=== PATIENT | male | born 1960 | race Caucasian/White ===

== ENCOUNTER 2019-08-01 12:16 | Inpatient (IN) | payer MEDICARE ==
--- NOTE | 2019-08-01 13:15 | ULT ---
EXAM: Right lower extremity venous Doppler US HISTORY: Right lower extremity edema and pain FINDINGS: Grayscale, color-flow, Doppler evaluation, spectral analysis of the right lower extremity venous stru ctures is performed with 2-D imaging. The right common femoral, superficial femoral, popliteal, posterior tibial, proximal greater saphenous and profunda femoral veins are imaged. There is normal luminal compressibility, flow, and augmentation the visualized deep venous structures of the right lower extremity. IMPRESSION: No evidence of a deep vein thrombosis in the right lower extremity.
[2019-08-01 14:05] LABS: #Eosinphils 0.1 thou/uL (0.0-0.7); #Lymphocytes 1.9 thou/uL (1.20-3.40); #Monocytes 0.7 thou/uL (0.11-0.59); #Neutrophils 7.6 thou/uL (1.40-6.50); %Basophils 0.3 % (0.0-1.0); %Eosinophils 1.1 % (0.0-10.0); %Lymphocytes 18.5 % (21.0-51.0); %Monocytes 6.6 % (0.0-10.0); %Neutrophils 73.6 % (42.0-75.0); Hemoglobin 15.6 g/dL (14.0-18.0); Mean Corpuscular HGB CONC 33.1 g/dL (32.0-36.0); Mean Corpuscular Hemoglobin 30.3 pg (27.0-31.0); Mean Corpuscular Volume 91.6 fL (78.0-98.0); Mean Platelet Volume 6.8 fL (7.4-10.4); Platelet Count 225 thou/uL (130-400); RBC Distribution Width 12.9 % (11.5-14.5); Red Blood Cell (RBC) Count 5.14 mill/uL (4.70-6.10); White Blood Cell (WBC) Count 10.3 thou/uL (4.8-10.8)
[2019-08-01 14:26] LABS: ALT (SGPT) 9 U/L (8-55); AST (SGOT) 9 U/L (5-34); Albumin 3.8 g/dL (3.4-4.8); Alkaline Phosphatase 117 U/L (40-110); Anion Gap 9 mmol/L (10-20); BUN (Urea Nitrogen) 13 mg/dL (8.4-25.7); Bilirubin, Total 0.5 mg/dL (0.2-1.2); Calc. Creatinine Clearance 0 mL/min (70-130); Calcium 8.9 mg/dL (7.8-10.44); Carbon Dioxide 31 mmol/L (23-31); Chloride 99 mmol/L (98-107); Estimated GFR-MDRD 86; Globulin 3.2 g/dL (2.4-3.5); Glucose 179 mg/dL (80-115); Potassium 4.3 mmol/L (3.5-5.1); Sodium 135 mmol/L (136-145)
--- NOTE | 2019-08-01 15:00 | RAD ---
XR Tib Fib Rt Leg 2 View History: Leg pain Comparison: Radiograph August 19, 2019 Findings: No acute fracture or malalignment. Mild circumferential soft tissue swelling. Moderate pret ibial edema has slightly improved. Impression: Slight interval improvement of pretibial soft tissue swelling.
[2019-08-01] MEDS ORDERED: Morphine 4 MG/ML VIAL ONE (15:52)
[2019-08-01] MEDS ORDERED: Dextrose 5% in Water 1,000 ML IV PRN (19:08)
[2019-08-01] MEDS ORDERED: Dextrose 50% Abboject 50 ML SYRINGE SLOW IVP PRN (19:08)
[2019-08-01] MEDS ORDERED: HumaLOG 300 UNITS/3 ML VIAL SC PRN ×2 (19:08)
[2019-08-01] MEDS ORDERED: Ondansetron PF 4 MG/2 ML Vial IVP PRN (19:45)
[2019-08-01 20:04] VITALS: BMI 47.9
--- NOTE | 2019-08-01 20:38 | RAD ---
CHEST TWO VIEW: 08/01/19 HISTORY: Syncope. COMPARISON: Radiograph 2014. FINDINGS: There is likely anterior herniation of fat and portions of the colon through the anterior diaphragm a s seen on the anterior and lateral radiographs. No confluent air space consolidation, pneumothorax or effusion. No acute osseous abnormality. IMPRESSION: Chronic findings. No acute intrathoracic abnormality. POS: HOME
[2019-08-01] MEDS ORDERED: Famotidine/PF 20 mg/2ml Vial SLOW IVP SCH (21:00)
[2019-08-01] MEDS ORDERED: hydrALAZINE 20 MG/ML VIAL SLOW IVP PRN (21:50)
[2019-08-01] MEDS: Sodium Chloride 0.9% 1,000 ML IV SCH (22:29)
[2019-08-02] MEDS: traMADol HCl 50 MG TAB PO PRN (05:28)
[2019-08-02 05:30] LABS: %Neutrophils 72.4 % (42.0-75.0); Hemoglobin 15.5 g/dL (14.0-18.0); Mean Corpuscular HGB CONC 33.1 g/dL (32.0-36.0); Mean Corpuscular Hemoglobin 30.3 pg (27.0-31.0); Mean Corpuscular Volume 91.6 fL (78.0-98.0); Mean Platelet Volume 6.9 fL (7.4-10.4); Platelet Count 209 thou/uL (130-400); RBC Distribution Width 12.8 % (11.5-14.5); Red Blood Cell (RBC) Count 5.13 mill/uL (4.70-6.10); White Blood Cell (WBC) Count 9.6 thou/uL (4.8-10.8)
[2019-08-02 05:31] LABS: #Eosinphils 0.2 thou/uL (0.0-0.7); #Lymphocytes 1.8 thou/uL (1.20-3.40); #Monocytes 0.7 thou/uL (0.11-0.59); #Neutrophils 6.9 thou/uL (1.40-6.50); %Basophils 0.2 % (0.0-1.0); %Eosinophils 1.9 % (0.0-10.0); %Lymphocytes 18.4 % (21.0-51.0); %Monocytes 7.1 % (0.0-10.0)
[2019-08-02 05:46] LABS: Anion Gap 11 mmol/L (10-20); BUN (Urea Nitrogen) 12 mg/dL (8.4-25.7); Calc. Creatinine Clearance 219 mL/min (70-130); Calcium 8.6 mg/dL (7.8-10.44); Carbon Dioxide 28 mmol/L (23-31); Chloride 100 mmol/L (98-107); Estimated GFR-MDRD Greater than 90; Glucose 158 mg/dL (80-115); Magnesium 1.9 mg/dL (1.6-2.6); Potassium 4.2 mmol/L (3.5-5.1); Sodium 135 mmol/L (136-145)
[2019-08-02 05:55] LABS: Bacteria/HPF None Seen HPF (None Seen); Bilirubin Negative (Negative); Blood, Urine Negative (Negative); Clarity Clear (Clear); Glucose, Urine (Dipstick) Greater than 1000 mg/dL (Negative); Leukocyte Negative Leu/uL (Negative); Nitrite Negative (Negative); Protein, Urine (Dipstick) Negative (Neg-Trace); RBC/HPF 0-3 HPF (0-3); Squamous Epithelial 0-3 HPF (0-3); WBC/HPF 0-3 HPF (0-3)
[2019-08-02 06:02] LABS: Urine Culture Reflex No No
--- NOTE | 2019-08-02 07:23 | HP ---
TIME OF ASSESSMENT: 1800 hours. CHIEF COMPLAINT: Right lower extremity swelling and pain. HISTORY OF PRESENT ILLNESS: Mr. Smith is a pleasant 59-year-old gentleman, who presents with increasing pain, swelling and erythema to the right lower extremity. He had been prescribed Bactrim by his primary care physician who he saw on Wednesday and has noted progressive worsening since then despite being on antibiotics. The patient states he injured his leg on . He states he was walking in his bedroom and the next thing he remembers is being on the floor and had apparently nicked the right anterior jasmine on the coffee table. The patient does not recall having any preceding symptoms prior to collapsing. Denies having any chest pain or palpitations. Denies having any lightheadedness. Since then, he has had no further syncopal episodes or unusual symptoms except for the increasing redness and swelling to the right lower extremity. He did seek medical attention at the [facility] on the day that he fell. He underwent imaging which showed no acute findings. The patient states that he had immediately developed a large area of swelling to the right anterior jasmine that was as big as his hand. Since then, that has progressively improved. However, as days progressed, he developed a linear area of erythema down his jasmine that has progressively worsened since. A repeat x-ray was done in the emergency department today, which showed slight interval improvement of the pretibial soft tissue swelling. There were no other abnormalities present. Of note, the patient did not undergo any CT imaging of the brain following his fall, and denies any headaches, vision changes or other concerning symptoms related to the fall since then. He also did not undergo any syncope workup. I do not see an EKG was done the day he fell or today. The patient has a known history of COPD and has been a heavy smoker and continues to smoke heavily. He uses O2 at home. Reports having a chronic cough, which has not been worse in recent days. Denies any hemoptysis. Again, denies any chest pain. No recent fevers or chills. No nausea or vomiting. No abdominal pain. Denies any lightheadedness. No dizziness. Denies any palpitations. All other review of systems are negative. In the emergency department, he has been started on IV antibiotics with vancomycin. PAST MEDICAL HISTORY: 1. Morbid obesity. 2. Diabetes mellitus. 3. COPD, on O2 at home. 4. History of CHF. 5. Cervical spine radiculopathy. 6. Peripheral neuropathy. PAST SURGICAL HISTORY: 1. Left lower leg surgery in the 1980s. 2. Fatty tumor removed from the right side of his chest. SOCIAL HISTORY: The patient reports smoking 2 packs per day and has been smoking for the last 30 years. He is a former alcoholic, but quit 2 years ago. Denies any illicit drug use. ALLERGIES: NO KNOWN DRUG ALLERGIES. CURRENT MEDICATIONS: 1. Farxiga. 2. Humulin. 3. Aspirin. 4. Gabapentin. 5. Lyrica. PHYSICAL EXAMINATION: GENERAL: The patient is morbidly obese, resting comfortably in bed, and in no acute distress. VITAL SIGNS: Temperature 97.7, pulse 72, respirations 20, O2 sat 95% on 3 L of oxygen by nasal cannula, and blood pressure 173/88. HEENT: Normocephalic and atraumatic. Pupils are equal, round, and reactive to light. Sclerae icterus. Oropharynx is clear. NECK: Supple. LUNGS: Notable for scattered occasional inspiratory and expiratory wheezing, mild. No crackles. CARDIAC: Regular rate and rhythm. ABDOMEN: Obese, soft, nontender, and nondistended. Normoactive bowel sounds present. No guarding or rigidity. No renal angle tenderness. EXTREMITIES: Right lower extremity swelling with erythema involving the entire right lower leg below the knee extending down to the right ankle. This area is warm with some bluish discoloration/ecchymosis. The patient has an area of swelling right below the right knee, which is not erythematous or warm, but is fluctuant, possibly hematoma, as it had developed immediately after the fall with notable improvement per imaging. NEUROLOGIC: Alert and oriented x3. No neuro deficits. No focal deficits. SKIN: Warm and dry. INVESTIGATIONS: Laboratory Data: White blood count 10.3, hemoglobin 15.6, hematocrit 47.1, platelets 225, and neutrophils 73.6%. ESR 13. Sodium 135, potassium 4.3, BUN 13, creatinine 0.90, GFR 86, glucose 179, and calcium 8.9. LFTs unremarkable. Alkaline phosphatase 117. CRP 1.83. Imaging Data: 1. As mentioned above in HPI, the patient had a tib-fib x-ray, that was unremarkable, showing improved soft tissue swelling when compared to x-ray done of the right tib-fib on July 12, 2019. 2. Venous Doppler to the right lower extremity showed no evidence of DVT. IMPRESSION AND PLAN: Mr. Smith is a very pleasant 59-year-old gentleman who is being admitted for management of the following. 1. Right lower extremity cellulitis. He has failed outpatient treatment with Bactrim. He has been started on IV antibiotics, which we will continue. Pharmacy to dose vancomycin. We will add lactic acid. 2. Syncope. The patient has not undergone workup for syncope, which is what caused his fall on the . No EKG has been done, therefore, we will obtain a baseline EKG. We will obtain orthostatic blood pressures. We will add magnesium and BNP. Echocardiogram requested as well. The patient will be moved to telemetry for continuous cardiac monitoring. He might benefit from a Holter monitor placement at discharge. This is to be determined by Day Team. 3. History of congestive heart failure. We will add BNP to his labs and we will keep him on gentle hydration. 4. Chronic obstructive pulmonary disease. The patient is on oxygen at home, which we will continue. Order placed for auto PAP as the patient states he uses BiPAP at night and does not know his settings. 5. Diabetes mellitus. Monitor blood glucose. Initiate insulin sliding scale. Resume home medications once verified. 6. Peripheral neuropathy. Resume home medications once verified. 7. Gastrointestinal prophylaxis. Famotidine 20 mg b.i.d. 8. Deep venous thrombosis prophylaxis. The patient is ambulatory. Walking program consulted. We will hold mechanical SCDs given the right lower extremity swelling and injury. 9. Code status full. His surrogate decision maker is his . The patient's case is discussed with Dr. Escobar, who agrees upon care as described above. Job ID: [id number]
[2019-08-02] MEDS ORDERED: HumuLIN 70/30 (300 UNITS/3 ML VIAL) SC SCH (07:30)
[2019-08-02] MEDS: Gabapentin 300 MG CAP PO SCH ×4 (07:50→21:15)
[2019-08-02] MEDS: Ondansetron ODT 4 MG TAB PO PRN ×2 (07:50→15:46)
[2019-08-02] MEDS: cefTRIAXone\\ROCEPHIN 2 GM in Sodium Chloride 0.9% 100 ML IVPB SCH (07:52)
[2019-08-02] MEDS: Aspirin Chewable 81 MG TAB PO SCH (08:42)
[2019-08-02] MEDS: Famotidine 20 MG TAB PO SCH ×2 (08:42→21:15)
[2019-08-02] MEDS: Pregabalin 25 MG CAP PO SCH (08:42)
[2019-08-02] MEDS: HumuLIN 70/30 (300 UNITS/3 ML VIAL) SC SCH (11:20)
--- NOTE | 2019-08-02 13:05 | PDOC.HOSPP ---
- Subjective Encounter Date: 08/02/19 Encounter Time: 10:15 Subjective: says fell on thanksgiving with twisting of right ankle and pain he has been walking on it now (had pain for 2 days initially) - Objective Vital Signs & Weight: Vital Signs (12 hours) Temp Pulse Pulse Pulse Resp BP BP 08/02/19 10:45 81 20 08/02/19 09:09 77 92 150/66 H 193/72 H 08/02/19 08:08 97.3 F L 68 18 08/02/19 03:00 97.1 F L 80 19 BP BP Pulse Ox Pulse Ox Pulse Ox 08/02/19 10:45 143/82 H 97 08/02/19 09:09 97 98 08/02/19 08:08 157/68 H 98 08/02/19 03:00 149/65 H 99 Weight Weight 325 lb I&O: 08/01/19 08/02/19 08/03/19 06:59 06:59 06:59 Intake Total 400 Output Total 350 Balance 50 Result Diagrams: 08/02/19 05:07 08/02/19 05:07 Additional Labs: Accuchecks 08/02/19 08/01/19 08/01/19 10:40 22:01 17:32 POC Glucose 152 H 166 H 145 H Hospitalist ROS - Medication Medications: Active Medications Generic Name Dose Route Start Last Admin Trade Name Freq PRN Reason Stop Dose Admin Albuterol/Ipratropium 3 ml 08/02/19 01:00 08/02/19 12:41 Duoneb NEB Not Given [id number] LIZBETH Aspirin 81 mg 08/02/19 09:00 08/02/19 08:42 Aspirin Chewable PO 81 mg DAILY LIZBETH Administration Famotidine 20 mg 08/02/19 09:00 08/02/19 08:42 Pepcid PO 20 mg Q12HR LIZBETH Administration Gabapentin 900 mg 08/02/19 09:00 08/02/19 07:50 Neurontin PO 900 mg QID LIZBETH Administration Sodium Chloride 1,000 mls @ 65 mls/hr 08/01/19 19:45 08/01/19 22:29 Normal Saline 0.9% IV 1,000 mls .[id number] LIZBETH Administration Vancomycin HCl 2 gm/ Sodium 500 mls @ 250 mls/hr 08/01/19 21:00 08/02/19 10: 20 Chloride IVPB 500 mls Q12HR LIZBETH Administration Ceftriaxone Sodium 2 gm/ 100 mls @ 200 mls/hr 08/02/19 08:00 08/02/19 07:52 Sodium Chloride IVPB 100 mls 0800 LIZBETH Administration Insulin Human Isoph/Insulin Regular 30 units 08/02/19 09:00 08/02/19 11:20 Humulin 70/30 SC 30 unit QAM LIZBETH Administration Ondansetron HCl 4 mg 08/01/19 19:45 08/02/19 07:50 Zofran Odt PO 4 mg Q6H PRN Administration Nausea/Vomiting Pregabalin 25 mg 08/02/19 09:00 08/02/19 08:42 Lyrica PO 25 mg QAM LIZBETH Administration Tramadol HCl 50 mg 08/02/19 05:14 08/02/19 05:28 Ultram PO 50 mg Q8H PRN Administration Pain - Exam General Appearance: awake alert Eye: PERRL, anicteric sclera ENT: no oropharyngeal lesions, moist mucosa Neck: supple, no JVD Heart: RRR, no murmur Respiratory: no wheezes, no rales, rhonchi Gastrointestinal: soft, non-tender, non-distended Extremities - other findings: right below knee laterally has swelling, ankle echymosis, leg erythema+ Neurological: cranial nerve grossly intact, no focal deficits Psychiatric: normal affect, A&O x 3 Hosp A/P (1) Cellulitis of right leg Code(s): L03.115 - CELLULITIS OF RIGHT LOWER LIMB Status: Acute (2) COPD (chronic obstructive pulmonary disease) Status: Chronic Qualifiers: COPD type: chronic bronchitis (3) Chronic respiratory failure Code(s): J96.10 - CHRONIC RESPIRATORY FAILURE, UNSP W HYPOXIA OR HYPERCAPNIA Status: Chronic Qualifiers: Respiratory failure complication: hypoxia and hypercapnia Qualified Code(s) : J96.11 - Chronic respiratory failure with hypoxia; J96.12 - Chronic respiratory failure with hypercapnia (4) DM type 2 (diabetes mellitus, type 2) Status: Chronic Qualifiers: Diabetes mellitus unix system administrator insulin use: with group home use (5) Tobacco abuse Code(s): Z72.0 - TOBACCO USE Status: Chronic (6) HTN (hypertension) Code(s): I10 - ESSENTIAL (PRIMARY) HYPERTENSION Status: Chronic Qualifiers: Hypertension type: essential hypertension Qualified Code(s): I10 - Essential (primary) hypertension - Plan d/w Teacle, will evaluate him and order further imaging as needed is on vanc and ceftriaxone (took bactrim for a week prior to coming) long h/o smoking, has come down to 2 packs/day now, sees as outpt continue 70/30 insulin, farxiga, neurontin and lyrica change status to inpatient, tx to med/medsurg floor
[2019-08-02] MEDS ORDERED: Methyl Salicylate/Menthol 85 GM TUBE TOP SCH (21:00)
[2019-08-02] MEDS: Sodium Chloride 0.9% 1,000 ML IV SCH (21:09)
--- NOTE | 2019-08-03 01:52 | CON ---
DATE OF CONSULTATION: 08/02/2019 REQUESTING PHYSICIAN: Manuel Schwab MD CONSULTING PHYSICIAN: Maverick Oh MD REASON FOR CONSULTATION: Subacute swelling, right leg. BRIEF CLINICAL HISTORY: Praneeth is a 59-year-old male who apparently fell a day or so after Thanksgiving, resulting in a hematoma on the right anterolateral leg. The patient reports swelling which has been coming on for the last week and a half. He has been able to stand and walk and get around and his is concerned with the persistence of the swelling and discomfort and prompted him to present to the emergency room where he was admitted by the Medicine Team for possible infection failing outpatient management with oral Bactrim, which was prescribed by his primary care provider due to the redness noted acutely after the swelling came on. The patient has a long complicated history of chronic COPD. He continues to smoke 3 packs a day and he also takes aspirin chronically. PAST MEDICAL HISTORY: Significant for insulin-requiring diabetes, peripheral neuropathy, history of chronic alcohol abuse, but he denies any illicit drug abuse. COPD and congestive heart failure. PAST SURGICAL HISTORY: Left leg surgery some time ago. Plain radiographs have been obtained of the leg and knee, which failed to demonstrate any acute issue and venous Doppler did not demonstrate evidence of DVT, but he was still admitted by the Medicine Team for cellulitis and our service was consulted for orthopedic evaluation of the large hematoma over the right anterolateral jasmine. PHYSICAL EXAMINATION: Visual spanning of the right lower extremity demonstrates the patient to have range of motion to be adequate and full at the knee. He is stable to varus and valgus stressing. Drawer is negative. There is no effusion over the knee. He does have a small abrasion on the anteromedial aspect of the infrapatellar region, but his patellar tendon appears to be intact. Quadriceps tendons are intact. There is no effusion over the knee. Essentially normal examination. Visual inspection of the leg; however, demonstrates a large anterolateral compressible hematoma which is about 7 x 7 cm and under the subcutaneous layer, it is fluctuant and not very tender. It is compressible and the skin appeared to be intact over the apex. There is no breakdown at this point. No severe ecchymosis or bruising. Most of the bruising run-down is seen inferior to the hematoma. It is nontender and he has some dimpling of the skin consistent with an orange peel appearance, but ecchymosis is noted diffusely and appears to be clearing at this point and does appear subacute in nature. Ankle examination is essentially normal and nontender. There is some trace to +1 edema circumferentially and chronic dermal stasis changes are appreciated with the patient's leg examination as well. He has good dorsiflexion, inversion, eversion, plantar flexion and full digital excursion is noted. Sensation is intact. IMAGING STUDIES: Two-view left leg failed to demonstrate any osseous abnormalities. No acute changes or fractures were identified at the site of the of the hematoma. IMPRESSION: Clinical examination and presentation are consistent with subacute presentation, right subcutaneous large hematoma. It appeared to be extra fascial in nature. PLAN: 1. At this point, conservative management highly recommended. There is no plans for incision, drainage, or aspiration. Skin changes are consistent with slow healing and resorption and resolution clinical course. 2. The patient may be weightbearing as tolerated. I do not think antibiotics treatment is warranted at this point. Continue to observe skin. He can follow up with his primary care provider, but we will offer him a clinic appointment in 1-2 weeks for clinical reexamination at our outpatient clinic. Job ID: [id number]
[2019-08-03] MEDS: traMADol HCl 50 MG TAB PO PRN (04:53)
[2019-08-03 08:15] VITALS: BP 131/57; TEMP 98
--- NOTE | 2019-08-03 09:25 | MRI ---
MRI OF THE RIGHT LEG WITH AND WITHOUT IV CONTRAST: INDICATION: Swelling status post fall with right leg cellulitis. TECHNIQUE: Multiple sequence MR images were obtained of the right foreleg with and without contrast utilizing 20 cc of MultiHance. No comparisons are available. Radiographic review of the right foreleg radiographs from 08/01/2019 were performed. FINDINGS: There is a predominantly T1 hyperintense, T2 hyperintense nonenhancing collection within the subcutan eous tissues overlying the proximal anterolateral right foreleg measuring 8.9 x 4.2 x 5.6 cm consistent with a large subcutaneous hematoma. There is enhancement of the subcutaneous tissues overl trip the anterior aspect of the proximal foreleg as well as the right knee suspicious for changes of a mild cellulitis. No abnormal enhancing mass is demonstrated. No marrow signal abnormality is paula ssly evident. There is mild osteoarthrosis involving the right knee. IMPRESSION: Large subcutaneous hematoma overlying the anterior compartment of the proximal right foreleg. Anterio r right knee and right foreleg cellulitis. Transcribed Date/Time: 08/03/2019 9:32 AM
[2019-08-03] MEDS: Aspirin Chewable 81 MG TAB PO SCH (09:35)
[2019-08-03] MEDS: Pregabalin 25 MG CAP PO SCH (09:36)
[2019-08-03] MEDS: Gabapentin 300 MG CAP PO SCH (09:36)
[2019-08-03] MEDS: HumuLIN 70/30 (300 UNITS/3 ML VIAL) SC SCH (09:37)
[2019-08-03] MEDS: Sodium Chloride 0.9% 1,000 ML IV SCH (09:38)
[2019-08-03] MEDS: Famotidine 20 MG TAB PO SCH (09:40)
[2019-08-03] MEDS: cefTRIAXone\\ROCEPHIN 2 GM in Sodium Chloride 0.9% 100 ML IVPB SCH (09:40)
--- NOTE | 2019-08-03 15:23 | DIS ---
DATE OF ADMISSION: 08/01/2019 DATE OF DISCHARGE: 08/03/2019 DISCHARGE DISPOSITION: Home. PRIMARY DISCHARGE DIAGNOSES: 1. Right leg cellulitis. 2. History of fall with hematoma. SECONDARY DISCHARGE DIAGNOSES: 1. Chronic obstructive pulmonary disease. 2. Chronic tobacco abuse. 3. Chronic respiratory failure on home oxygen. 4. Diabetes mellitus type 2. 5. Hypertension. PROCEDURES DONE DURING HOSPITALIZATION: The patient has had ultrasound venous Doppler done of right lower extremity, which showed no DVT. Tibia fibula x-ray two view done showed no acute fracture or malalignment. There is mild circumferential soft tissue swelling seen. MRI of right lower extremity done showed large subcutaneous hematoma measuring 8.9 x 4.2 x 5.6 cm cellulitis seen in the legs. Chest x-ray showed chronic findings with no acute abnormality. H and H 15 and 47, platelet count 209, white count of 9.6, MCV 91. Sedimentation rate 13. TSH 1.72, BUN 12, creatinine 0.7, CRP 1.83. DISCHARGE MEDICATIONS: 1. Aspirin 81 mg p.o. daily. 2. Farxiga 5 mg p.o. q.a.m. 3. Gabapentin 1600 mg p.o. 4 times daily. 4. NovoLog 70/30 30 units subcu q.a.m. 5. Lyrica p.o. q.a.m. 6. Keflex 500 mg p.o. three times daily for 10 days. ALLERGIES: NO KNOWN DRUG ALLERGIES. INPATIENT CONSULT: Dr. Hays/Adriano for Orthopedic Surgery. DISCHARGE PLAN: The patient to follow up with his primary care physician, Ms. Kathrin Soni, nurse practitioner in 1 week. BRIEF COURSE DURING HOSPITALIZATION: The patient initially was admitted on the for right lower extremity swelling and pain essentially cellulitis. He was also found to have had a large hematoma on the anterolateral aspect beneath the knee and ecchymosis seen on the medial aspect of the foot. In view of this, he has had orthopedic surgery consultation as the patient had a fall on . There were no fractures noted in his knee or ankle per orthopedics. He has had MRI done which confirms hematoma in his anterolateral aspect of the knee beneath the knee area on the right leg. He had also failed outpatient antibiotics after taking it for nearly 6 days (Bactrim). He was on IV antibiotics and has been transitioned to Keflex, which he needs to continue for 10 days. His area of erythema and edema is receding slowly. Please note, I have seen and examined the patient on the day of discharge. Job ID: [id number] MTDD
--- NOTE | 2019-08-05 05:16 | PQF ---
SAP Supervisor [employer]acing Crystal Reports Winform ViewerEMETERIO TIPTON JUVENTINO SOW MD [id number] [facility] [id number] CLINICAL DOCUMENTATION CLARIFICATION FORM: POST DISCHARGE Addendum to original discharge summary date: ____ Late entry note date: __ DATE: 08/05/2019 ATTN:JUVENTINO SOW MD Please exercise your independent, professional judgment in responding to the clarification form. Clinical indicators are provided on the bottom of this form for your review Please check appropriate box(s): [ ] RT Lower extremity cellulitis with Diabetes mellitus [ ] RT Lower extremity cellulitis without Diabetes mellitus [x ] Other diagnosis please see progress note/discharge summary, its not related to dm. Please provide your telephone # so we can contact you to discuss these issues. Thank You [ ] Unable to determine In addition, please specify: Present on Admission (POA): [ x] Yes [ ] No [ ] Unable to determine CLINICAL INDICATORS - SIGNS / SYMPTOMS / LABS RT lower extremity cellulitis - Documented in H&P on 08/01 by Muriel Yu he failed outpatient treatment with Bactrim - Documented in H&P on 08/01 by Muriel Yu Glucose Level 179 on 08/01 and 158 on 08/02 - Documented in Laboratory Hx of Diabetes Mellitus - Documented in H&P on 08/01 by Muriel Yu RISK FACTORS HTN COPD Chronic Respiratory failure - Documented in DS on 08/03 by JUVENTINO SOW MD TREATMENTS: He has been started on IV antibiotics which will continue - Documented in H&P on 08/01 by Muriel Yu Pharmacy to dose vancomycin - Documented in H&P on 08/01 by Muriel Yu Venous Doppler study Humulin 70/30 30units - Documented in Medication (This form is maintained as a part of the permanent medical record) 2014 [employer]. All Rights Reserved [email or web address] [not provided] MTDD
--- NOTE | 2019-08-10 04:23 | PQF ---
S[employer] Farm Manager Crystal Reports Winform ViewerEMETERIO TIPTON RUDYSherly JUVENTINO SOW MD [id number] [facility] [id number] CLINICAL DOCUMENTATION CLARIFICATION FORM: POST DISCHARGE Addendum to original discharge summary date: ____ Late entry note date: __ DATE:08/10/2019 ATTN: JUVENTINO SOW MD Please exercise your independent, professional judgment in responding to the clarification form. Clinical indicators are provided on the bottom of this form for your review Please check appropriate box(s): HEART FAILURE: A. TYPE: [ ] Systolic / HFrEF [ ] Diastolic / HFpEF [ ] Combined Systolic / Diastolic B. ACUITY [ ] Acute [ ] Acute on Chronic [ ] Chronic [ ] Other diagnosis [ x ] Unable to determine: He did not have current symptoms or signs of heart failure this admission, no prior echo to know if he had prior h/o chf. In addition, please specify: Present on Admission (POA): [ ] Yes [ ] No [ ] Unable to determine For continuity of documentation, please document condition throughout progress notes and discharge summary. Thank You. CLINICAL INDICATORS - SIGNS / SYMPTOMS / LABS RT lower extremity swelling - Documented in H&P on 08/01 by Aimee Mccullough Hx of CHF - Documented in H&P on 08/01 by Aimee Mccullough We will add BNP to his lab and we will keep him on gently hydration - Documented in H&P on 08/01 by Aimee Mccullough BNP level less than 10 on 08/01 - Documented in laboratory RISKS: HTN COPD Chronic Respiratory failure DM TREATMENTS: We will add magnesium and BNP and Echocardiogram requested as well - Documented in H&P on 08/01 by Aimee Mccullough Patient will be moved to telemetry for continuous cardiac monitoring - Documented in H&P on 08/01 by Aimee Mccullough [employer] Farm Manager Crystal Reports Winform Viewer (This form is maintained as a part of the permanent medical record) 2014 [employer]. All Rights Reserved [email or web address] [not provided] MTDD
--- NOTE | 2019-08-14 16:52 | EKG ---
Test Reason : ROUTINE Blood Pressure : / mmHG Vent. Rate : 079 BPM Atrial Rate : 079 BPM P-R Int : 172 ms QRS Dur : 084 ms QT Int : 380 ms P-R-T Axes : 065 065 053 degrees QTc Int : 435 ms Normal sinus rhythm Normal ECG When compared with ECG of 08-JAN-2014 13:29, No significant change was found Confirmed by MARKO UREÑA M.D. ([id number]) on 08/14/2019 4:51:46 PM Referred By: BRIAN LEE Confirmed By:MARKO UREÑA M.D.
== END 2019-08-03 11:32 | disposition home or self-care (01) | DRG 603 ==
LOC: ERS 12:16 → INTOOBSV 16:33 → T4-B 16:33 → OBSVTOIN 16:33 → 2SW 21:08
PROVIDERS: ADMIT Hospitalist; ATTEND Hospitalist
DX: L03.115 Cellulitis of right lower limb (principal); Z68.42 Body mass index [BMI] 45.0-49.9, adult; J96.11 Chronic respiratory failure with hypoxia; J96.12 Chronic respiratory failure with hypercapnia; J44.9 Chronic obstructive pulmonary disease, unspecified; E66.01 Morbid (severe) obesity due to excess calories; E11.9 Type 2 diabetes mellitus without complications; I11.0 Hypertensive heart disease with heart failure; I50.9 Heart failure, unspecified; Z98.890 Other specified postprocedural states; F17.210 Nicotine dependence, cigarettes, uncomplicated; Z79.82 Long term (current) use of aspirin
CPT/HCPCS: 36415; 36416; 71046; 80048; 80053; 81001; 83605; 83735; 83880; 84443; 85025; 85652; 86140; 93005; 93010; 94660; 96365; 96375; J0696; J1815; J2270; J3370; J3490; J7050; J7620; Q0162

== ENCOUNTER 2020-10-04 19:43 | Inpatient (IN) | payer MEDICARE ==
[2020-10-04] MEDS ORDERED: Morphine 4 MG/ML VIAL ONE (20:04)
[2020-10-04] MEDS ORDERED: Piperacillin/Tazobactam 3.375 GM VIAL ONE (20:04)
[2020-10-04] MEDS ORDERED: Ondansetron PF 4 MG/2 ML Vial ONE (20:09)
--- NOTE | 2020-10-04 20:19 | RAD ---
Exam: Chest one view HISTORY:Shortness of breath Comparison: 08/01/2019 FINDINGS: Cardiac silhouette:Stable cardiac silhouette. There appears to be pericardial fat which accentuates t he cardiac silhouette Aorta: Unremarkable Pulmonary vessels: Normal Costophrenic angles: Clear LUNGS: No masses or consolidation. Questionable nodule in the right lower lobe. Pneumothorax: None Osseous abnormalities: None IMPRESSION: 1. No acute cardiopulmonary process 2. Questionable right lower lobe nodule Code lung nodule
[2020-10-04 20:29] LABS: Glucose 155 mg/dL (80-115)
[2020-10-04] MEDS ORDERED: metroNIDAZOLE 500 MG/100 ML BAG ONE (21:14)
[2020-10-04] MEDS ORDERED: Ondansetron PF 4 MG/2 ML Vial IVP PRN ×2 (23:15→23:53)
[2020-10-04] MEDS ORDERED: Ondansetron ODT 4 MG TAB SL PRN (23:15)
[2020-10-04] MEDS ORDERED: Dextrose 5 %-0.45 % NaCl 1,000 ML IV SCH (23:15)
[2020-10-04 23:18] VITALS: BMI 47.1
[2020-10-04] MEDS ORDERED: Dextrose 50% Abboject 50 ML SYRINGE SLOW IVP PRN (23:20)
[2020-10-04] MEDS ORDERED: Dextrose 5% in Water 1,000 ML IV PRN (23:20)
[2020-10-04] MEDS ORDERED: Electrolyte Replacement Protocol 1 EACH FS SCH (23:45)
[2020-10-04] MEDS ORDERED: Promethazine HCl 12.5 MG in Sodium Chloride 0.9% 50 ML IVPB PRN (23:53)
[2020-10-04] MEDS ORDERED: Acetaminophen 325 MG TAB PO PRN (23:53)
[2020-10-04] MEDS ORDERED: Guaifenesin DM 100-10/5 ML UDCUP PO PRN (23:53)
[2020-10-04] MEDS ORDERED: hydrALAZINE 20 MG/ML VIAL SLOW IVP PRN (23:53)
[2020-10-04] MEDS ORDERED: Labetalol HCl 100 MG/20 ML VIAL SLOW IVP PRN (23:53)
[2020-10-04] MEDS ORDERED: Morphine 2 MG/ML VIAL SLOW IVP PRN (23:53)
[2020-10-04] MEDS ORDERED: Piperacillin/Tazobactam 3.375 GM in Sodium Chloride 0.9% 100 ML IVPB SCH (23:59)
--- NOTE | 2020-10-05 | PDOC.HHP ---
Hospitalist HPI Abdominal pain History of Present Illness: Patient is a 60 year old male with PMH DM, CHF, COPD, chronic respiratory f ailure on 3.5L O2 chronically who presents as transfer from [place] for abdominal pain. Pain is in RLQ and began yesterday. +nausea. ate chili last night, felt worse since with gas and belching. WBC 14.5, CT abdomen revealed appendicitis without perforation. recieved zosyn. on chronic 3.5L NC and no change in breathing, denies wheezing. Dr West consulted. Patient admitted for further workup and care. Allergies/Adverse Reactions: Allergy/AdvReac Type Severity Reaction Status Date / Time No Known Allergies Allergy Verified 08/01/19 22:15 Home Medications: Medication Instructions Recorded Confirmed Type Aspirin 81 mg PO DAILY 08/01/19 10/04/20 History Dapagliflozin Propanediol [Farxiga] 5 mg PO QAM 08/01/19 10/04/20 History Gabapentin 1,600 mg PO QID 08/01/19 10/04/20 History Insulin NPH Hum/Reg Insulin HM 50 unit SC QAM 08/01/19 10/04/20 History [Novolin 70/30] Pregabalin [Lyrica] 300 mg PO QAM 08/01/19 10/04/20 History Past History: PMHx: Flu vaccine not up to date, Tetanus immunization up to date, Pneumococcal vaccine not up to date, Past medical history includes cardiac history, congestive heart failure, Past medical history includes history of diabetes, Type II, Past medical history includes musculoskeletal disorder, pinched nerve in neck, Past medical history includes pulmonary disease, chronic obstructive pulmonary disease, O2 3.5 L NC/cpap at night at home, Notes: TUMOR TO L chest. PSHx: Surgical history of orthopedic surgery, Notes: L leg, Surgical history of orthopedic surgery, LEFT LOWER LEG, Date of surgery , Notes: PINS, SCREWS, FATTY TUMOR REMOVALFROM L CHEST. FHx: reviewed, no relevant family history Social: Patient denies alcohol use, Lives at home, with family, , Patient denies drug use, Patient currently uses tobacco, smokes cigarettes, daily, Patient has smoked for 30 years, Patient smokes 3 packs per day, Lives at home, with family. Hospitalist EDITH ROS Constitutional: reports: weakness, malaise Eyes: denies: pain, vision change, conjunctivae inflammation, eyelid inflammation, redness, other ENT: denies: ear pain, ear discharge, nose pain, nose discharge, nose congestion, mouth pain, mouth swelling, throat pain, throat swelling, other Respiratory: denies: cough, dry, shortness of breath, hemoptysis, SOB with excertion, pleuritic pain, sputum, wheezing, other Cardiovascular: denies: chest pain, palpitations, orthopnea, paroxysmal noc. dyspnea, edema, light headedness, other Gastrointestinal: reports: nausea, vomiting, abdominal pain. denies: diarrhea, constipation, melena, hematochezia, other Genitourinary: denies: dysuria, frequency, incontinence, hematuria, retention, other Musculoskeletal: denies: neck pain, shoulder pain, arm pain, back pain, hand pain, leg pain, foot pain, other Skin: denies: rash, lesions, delia, bruising, other Neurological: denies: weakness, numbness, incoordination, change in speech, confusion, seizures, other All other systems reviewed; all pertinent +/- noted in HPI/Subj Hospitalist Exam Vitals: Vital Signs (12 hours) Temp Pulse Resp BP Pulse Ox 10/04/20 23:46 97.6 F 94 18 116/75 99 10/04/20 23:04 98.1 F 98 20 152/87 H 100 Weight Weight 319 lb 4.8 oz General Appearance: NAD, awake alert Eye: PERRL, anicteric sclera ENT: normocephalic atraumatic, no oropharyngeal lesions, moist mucosa Neck: supple, symmetric, no JVD, no thyromegaly, no lymphadenopathy, no carotid bruit Heart: RRR, no murmur, no gallops, no rubs, normal peripheral pulses Respiratory: CTAB, no wheezes, no rales, no ronchi, normal chest expansion, no tachypnea, normal percussion Gastrointestinal: soft, non-distended, normal bowel sounds, no palpable masses, no hepatomegaly, no splenomegaly, no bruit Gastrointestinal - other findings: TTP RLQ Extremities: no cyanosis, no clubbing, no edema Skin: normal turgor, no lesions, no rashes Neurological: cranial nerve grossly intact, normal sensation to touch, no weakness, no focal deficits, no new deficit Musculoskeletal: normal tone, normal strength, no muscle wasting Psychiatric: normal affect, normal behavior, A&O x 3 Hospitalist Results Result Diagrams: 10/04/20 20:11 Lab results: Laboratory Last Values Glucose 155 mg/dL (80-115) H 10/04/20 20:11 Lactic Acid 1.5 mmol/L (0.5-2.2) 10/04/20 20:38 Troponin I 0.022 ng/mL (< 0.028) 10/04/20 20:10 B-Natriuretic Peptide 65.1 pg/mL (0-100) 10/04/20 20:11 Additional comment: labs, imaging reports, ED documents reviewed EKG NSR [address] changes Hospitalist H&P A/P Plan: Patient is a 60 year old male with PMH DM, CHF, COPD, chronic respiratory failure on 3.5L O2 chronically who presents as transfer from [place] for abdominal pain. # acute appendicitis # leukocytosis RLQ pain x 1 day, +nausea, WBC 14.5, CT abdomen revealed appendicitis without perforation w/ reactive lymphadenopathy. recieved zosyn. on chronic 3.5L NC and no change in breathing, denies wheezing. Dr West consulted. Patient admitted for further workup and care. - admit to floor - echo - appreciate surgery assistance - Zosyn - IVF x 1 bag, monitor volume status - NPO # T2DM - continue home 70/30 at half dose, SSI # COPD - not clinically in exacerbation, no wheezing, continue medications # CHF - echo, clinically at baseline, follow up echo # chronic hypoxic respiratory failure - continue on home rate 3.5 LPM DVT/GI ppx
[2020-10-05] MEDS ORDERED: Pregabalin 75 MG CAP PO SCH (00:30)
[2020-10-05] MEDS ORDERED: metroNIDAZOLE 500 MG in Premix Bag 1 BAG IVPB SCH ×2 (01:00→05:00)
[2020-10-05] MEDS: HYDROcodone/Acetaminophen 5/325 mg Tablet PO PRN ×2 (01:12→06:14)
[2020-10-05] MEDS: Sodium Chloride 0.9% 1,000 ML IV SCH ×3 (01:12→22:25)
[2020-10-05] MEDS: Piperacillin/Tazobactam 3.375 GM in Sodium Chloride 0.9% 100 ML IVPB SCH ×4 (01:13→19:56)
[2020-10-05] MEDS ORDERED: Piperacillin/Tazobactam 3.375 GM in Sodium Chloride 0.9% 100 ML IVPB SCH (02:00)
[2020-10-05 05:07] LABS: #Basophils 0.1 thou/uL (0.0-0.2); #Lymphocytes 1.8 thou/uL (1.20-3.40); #Monocytes 1.1 thou/uL (0.11-0.59); #Neutrophils 8.7 thou/uL (1.40-6.50); %Basophils 0.5 % (0.0-1.0); %Eosinophils 0.3 % (0.0-10.0); %Lymphocytes 15.4 % (21.0-51.0); %Monocytes 9.4 % (0.0-10.0); %Neutrophils 74.5 % (42.0-75.0); Hemoglobin 14.7 g/dL (14.0-18.0); Mean Corpuscular HGB CONC 32.9 g/dL (32.0-36.0); Mean Corpuscular Volume 91.2 fL (78.0-98.0); Mean Platelet Volume 7.2 fL (7.4-10.4); Platelet Count 158 thou/uL (130-400); RBC Distribution Width 13.2 % (11.5-14.5); Red Blood Cell (RBC) Count 4.89 mill/uL (4.70-6.10); White Blood Cell (WBC) Count 11.6 thou/uL (4.8-10.8)
[2020-10-05 05:26] LABS: Anion Gap 10 mmol/L (10-20); BUN (Urea Nitrogen) 14 mg/dL (8.4-25.7); Calc. Creatinine Clearance 191 mL/min (70-130); Calcium 7.9 mg/dL (7.8-10.44); Carbon Dioxide 23 mmol/L (23-31); Chloride 103 mmol/L (98-107); Glucose 122 mg/dL (80-115); Magnesium 1.6 mg/dL (1.6-2.6); Potassium 3.9 mmol/L (3.5-5.1); Sodium 132 mmol/L (136-145)
[2020-10-05 05:50] LABS: SARS-CoV-2 PCR by NAA Not Detected (NotDetected)
[2020-10-05] MEDS ORDERED: Magnesium 2 GM/50 ML 2 GM in Premix Bag 1 BAG IVPB SCH (06:30)
[2020-10-05] MEDS: Aspirin Chewable 81 MG TAB PO SCH (07:58)
[2020-10-05] MEDS: Polyethylene Glycol 3350 17 GM Packet PO SCH (08:05)
[2020-10-05] MEDS ORDERED: HumuLIN 70/30 (300 UNITS/3 ML VIAL) SC SCH ×2 (09:00)
[2020-10-05] MEDS ORDERED: Famotidine 20 MG TAB PO SCH (09:00)
[2020-10-05] MEDS ORDERED: DAPAGLIFLOZIN PROPANEDIOL 5 MG PO SCH (09:00)
[2020-10-05] MEDS ORDERED: Gabapentin 400 MG CAP PO SCH ×2 (09:00→21:30)
[2020-10-05] MEDS ORDERED: methylPREDNISolone Sod Succ/PF 125 MG/2 ML VIAL IVP SCH (10:30)
[2020-10-05] MEDS ORDERED: Budesonide 0.5 MG/2 ML NEB NEB SCH (10:30)
--- NOTE | 2020-10-05 11:03 | CON ---
DATE OF CONSULTATION: CHIEF COMPLAINT: Right lateral abdominal pain. HISTORY OF PRESENT ILLNESS: The patient is a 60-year-old male who was admitted with a 2-day history of right-sided abdominal pain associated with nausea, no vomiting. CT scan shows a retrocecal appendicitis. PAST MEDICAL HISTORY: Significant for severe COPD on home oxygen at 3.5 L, morbid obesity, diabetes mellitus, and congestive heart failure. PAST SURGICAL HISTORY: He has had left leg surgery and benign lipoma removed from his chest. ALLERGIES: NO KNOWN DRUG ALLERGIES. MEDICATIONS: 1. Aspirin. 2. Lyrica. 3. Insulin. 4. Farxiga. 5. Gabapentin. SOCIAL HISTORY: He does not drink alcohol, but is still smoking. FAMILY HISTORY: Noncontributory. PHYSICAL EXAMINATION: VITAL SIGNS: Temperature 97.9, pulse 87, blood pressure 112/61. GENERAL: Morbidly obese male on oxygen. HEENT: Otherwise unremarkable. LUNGS: Clear. HEART: Regular rate and rhythm. ABDOMEN: Morbidly obese and distended. He is tender along the right lateral abdomen with a positive Rovsing sign. EXTREMITIES: Unremarkable. LABORATORY DATA: His white count is 11.6, hemoglobin and hematocrit 14 and 44, platelet count of 158. His glucose is 122, creatinine 0.8. IMAGING DATA: He has an echocardiogram pending. ASSESSMENT: Acute appendicitis, retrocecal and a very high risk patient. PLAN: Consult Pulmonary Medicine. They feel he is way too high risk to go to surgery. We will treat medically and percutaneous drain what if there is a perforation, however, if at all possible, would recommend surgery. It is likely would require an open procedure due to his abdominal distention and retrocecal nature of the appendix. Job ID: [id number]
--- NOTE | 2020-10-05 12:19 | PDOC.PULCN ---
Pulmonology Consult: HPI - Date of Consult Date: 10/05/20 Time: 10:00 - Consult Details Reason for Consult: preop pulm Comments: Brett - History of Present Illness HPI: EMETERIO TIPTON is a 60 year-old M This 60 year old male is followed as oupt by Dr Abraham for COPD, JIGAR, Obesity and continues to smoke 2 PPD, lacks exercise capacity, and continues to gain weight. He has a daily cough productive of white to yellow sputum, orthopnea, and is on home oxygen 3.5 liters and also via home cpap. He ate chili on 10/03 and developed reflux, followed by pain in RLQ, one liquid BM (his usual) and increasing pain. He presented by EMS to ED and has been diagnosed by CT with acute appendicitis. I am asked to render an opinion re: his surgical risks from a pulmonary perspective. Pulmonology Consult: ROS - Review of Systems Constitutional: other (lightheaded with pain and elevation in glucose which has occurred over past 48 hours) Cardiovascular: light headedness. negative: chest pain, palpitations, orthopnea, paroxysmal nocturnal dyspnea, edema, other Respiratory: cough (rhinitis after meals), exercise intolerance (severe, he is sedentary), productive cough, short of breath. negative: no reported symptoms, bloody sputum, congestion, chest soreness, chest tightness, pain on deep breathing, non-productive cough, orthopnea, other, blodd streaked sputum, stridor, tachypnea, wheezing Pulmonology Consult: PMH Past Medical History: diabetes, JIGAR, COPD, oxygen dependent remote surgeries of extremities: lipoma - Family History Family history: reviewed and not pertinent - Social History Smoking Status: Current every day smoker (2 ppd) Alcohol Use: none, other (last drink in ) Pulmonology Consult: Meds - Medications Medications: Current Medications Acetaminophen (Acetaminophen 325 Mg Tab) 650 mg PO Q4H PRN PRN Reason: Headache/Fever/Mild Pain (1-3) Hydrocodone Bitart/Acetaminophen (Hydrocodone/Acetaminophen 5/325 Mg Tablet) 1 tab PO Q4H PRN PRN Reason: Moderate Pain (4-6) Last Admin: 10/05/20 06:14 Dose: 1 tab Documented by: Albuterol/Ipratropium (Ipratropium/Albuterol Sulfate 3 Ml Neb) 3 ml NEB [id number] PRN PRN Reason: SOB &/or Wheezing Albuterol/Ipratropium (Ipratropium/Albuterol Sulfate 3 Ml Neb) 3 ml NEB NOW [facility] Stop: 10/05/20 12:00 Last Admin: 10/05/20 10:34 Dose: 3 ml Documented by: Albuterol/Ipratropium (Ipratropium/Albuterol Sulfate 3 Ml Neb) 3 ml NEB [id number] [facility] Last Admin: 10/05/20 10:42 Dose: Not Given Documented by: Aspirin (Aspirin Chewable 81 Mg Tab) 81 mg PO DAILY [facility] Last Admin: 10/05/20 07:58 Dose: 81 mg Documented by: Budesonide (Budesonide 0.5 Mg/2 Ml Neb) 0.5 mg NEB NOW [facility] Stop: 10/05/20 14:00 Last Admin: 10/05/20 10:35 Dose: 0.5 mg Documented by: Budesonide (Budesonide 0.5 Mg/2 Ml Neb) 0.5 mg NEB BID-RT [facility] Clonidine (Clonidine 0.1 Mg Tab) 0.1 mg PO BIDPRN PRN PRN Reason: SBP > 160, use second Dextrose/Water (Dextrose 50% Abboject 50 Ml Syringe) 25 gm SLOW IVP PRN PRN PRN Reason: Hypoglycemia Famotidine (Famotidine 20 Mg Tab) 20 mg PO BID [facility] Last Admin: 10/05/20 07:58 Dose: 20 mg Documented by: Gabapentin (Gabapentin 400 Mg Cap) 1,200 mg PO 0900 [facility] Stop: 10/05/20 12:00 Last Admin: 10/05/20 07:58 Dose: 1,200 mg Documented by: Glucagon (Glucagon 1 Mg/Ml Vial) 1 mg IM PRN PRN PRN Reason: Hypoglycemia Guaifenesin/Dextromethorphan (Guaifenesin Dm 100-10/5 Ml Udcup) 15 ml PO Q4H PRN PRN Reason: Cough Hydralazine HCl (Hydralazine 20 Mg/Ml Vial) 10 mg SLOW IVP Q6H PRN PRN Reason: SBP GREATER THAN 160 Dextrose/Water (D5w) 1,000 mls @ 0 mls/hr IV .Q0M PRN PRN Reason: Hypoglycemia Sodium Chloride (Normal Saline 0.9%) 1,000 mls @ 100 mls/hr IV .Q10H [facility] Last Admin: 10/05/20 01:12 Dose: 1,000 mls Documented by: Piperacillin Sod/Tazobactam (Sod 3.375 gm/ Sodium Chloride) 100 mls @ 200 mls/hr IVPB 0200,0800,1400,2000 [facility] Last Admin: 10/05/20 07:59 Dose: 100 mls Documented by: Promethazine HCl 12.5 mg/ (Sodium Chloride) 50.5 mls @ 202 mls/hr IVPB Q6H PRN PRN Reason: Nausea/vomiting, use second Insulin Human Lispro (Humalog 300 Units/3 Ml Vial) 0 units SC .MODERATE SLIDING SC PRN PRN Reason: Moderate Correctional Scale Insulin Human Lispro (Humalog 300 Units/3 Ml Vial) 0 units SC .BEDTIME SLIDING SC PRN PRN Reason: Bedtime Correctional Scale Labetalol HCl (Labetalol Hcl 100 Mg/20 Ml Vial) 20 mg SLOW IVP Q4H PRN PRN Reason: SBP > 160, use first Methylprednisolone Sodium Succinate (Methylprednisolone Sod Succ/Pf 125 Mg/2 Ml Vial) 80 mg IVP NOW [facility] Stop: 10/05/20 14:00 Miscellaneous Medication (Electrolyte Replacement Protocol 1 Each) 1 each FS ASDIR [facility] Morphine Sulfate (Morphine 2 Mg/Ml Vial) 2 mg SLOW IVP Q4H PRN PRN Reason: Moderate to Severe Pain (4-10) Non-Formulary Medication (Gabapentin [Gabapentin]) 1,600 mg PO QID [facility] Ondansetron HCl (Ondansetron Pf 4 Mg/2 Ml Vial) 4 mg IVP Q6H PRN PRN Reason: Nausea/Vomiting Stop: 10/05/20 11:00 Ondansetron HCl (Ondansetron Odt 4 Mg Tab) 4 mg SL Q6H PRN PRN Reason: Nausea/Vomiting Stop: 10/05/20 11:00 Ondansetron HCl (Ondansetron Pf 4 Mg/2 Ml Vial) 4 mg IVP Q6H PRN PRN Reason: Nausea/Vomiting, use 1st Polyethylene Glycol (Polyethylene Glycol 3350 17 Gm Packet) 17 gm PO DAILY [facility] Last Admin: 10/05/20 08:05 Dose: Not Given Documented by: Pregabalin (Pregabalin 75 Mg Cap) 300 mg PO HS [facility] Saccharomyces Boulardii (Saccharomyces Boulardii 250 Mg Cap) 250 mg PO DAILY [facility] Sodium Chloride (Flush - Normal Saline 10 Ml Syringe) 10 ml IVF PRN PRN PRN Reason: Saline Flush - Allergies Allergies/Adverse Reactions: Allergies Allergy/AdvReac Type Severity Reaction Status Date / Time No Known Allergies Allergy Verified 08/01/19 22:15 Pulmonology Consult: PE - Physical Exam HEENT: PERRLA, 2+ tonsils (Mallampati 4, submental distance 2 FB, enlarged tongue) Neck: no nodes (excessive fat of the neck) Cardiovascular: RRR (distant) Respiratory: decreased breath sounds (upper lobes), rales, rhonchi, wheezes (left lower on pulse ox when nc partiall in nares, sats remained 95% and greater when [address]) Focused Respiratory Location: decreased breath sounds: Upper, rhonchi: Right, Left, Lower, wheezes: Right, Lower Gastrointestinal: soft (tender right lower quadrant with guarding, obese, very large fat pad and hanging abdomen, quiet no bowel sounds) Musculoskeletal: no edema, pulses present Neurological: non-focal, moves all 4 limbs Psychiatric: normal affect (discussed likelihood of post op vent dependence, awakening with ETT in place, he accepts risks of prolonged mechanical tip tilation and discussed this with spouse in my presence) Skin: cap refill <2 seconds Deviation from normal: dry skin, erythema dorsum hands Pulmonology Consult: Results - Labs Result Diagrams: 10/05/20 04:49 10/05/20 04:49 - Radiology Interpretation Chest x-ray Status: image reviewed by me (bilateral fat pads, possible nodule or nipple shadow right lower, no acute infiltrates) Pulmonology Consult: A/P - Problem (1) JIGAR and COPD overlap syndrome Current Visit: Yes Code(s): G47.33 - OBSTRUCTIVE SLEEP APNEA (ADULT) ( PEDIATRIC); J44.9 - CHRONIC OBSTRUCTIVE PULMONARY DISEASE, UNSPECIFIED Status: Chronic (2) Hyponatremia Current Visit: Yes Code(s): E87.1 - HYPO-OSMOLALITY AND HYPONATREMIA Status: Acute - Time Time: 50% of the time was spent in coordination of care (as documented) at patient's floor/unit and/or counseling patient. Time with Patient: greater than 50 minutes (spent at bedside, discussion with patient and Dr West, available for OR and discuss with anesthesia,) - Plan Plan: Assess Complication risk for lower abd surgery is intermediate by ARISCAT score 34 = 13% risk fo in hospital post op pulmonary complicaitons incluing but not limited to prolonged respiratory failure, infections, effusions, atelectasis, pneumothorax, bronchospasm, aspiration Mallampati 4, difficult airway anticipated Morbid obesity Chronic bronchitis Suspect obesity hypoventilation syndrome JIGAR Oxygen dependent COPD Exercise intolerance Chronic tobacco dependence Hyponatremia Sepsis due to acute appendicitis: patient stated that he accepts risks of prolonged mechanical ventilation to reduce pain, explained that he will have post op pain as well Recommendations As discussed with Dr West and patient, he is at high risk of postoperative pulmonary complications and ventilator dependence Ordered preop bronchodilators and IPPB one dose of solumedrol given for wheezing, do not plan to continue post op unless wheezing continues with bronchodilators and inhaled steroids If surgery is the best option for this patient, and he agrees to go to OR with the caveats of taking the risks, Try to keep surgery time 45 mins or less Try to extubate to bipap and keep sats low 90's Preop ABG on 4 liters NC as baseline IPPB post op LR and maintain electrolytes within normal, limit fluids to what is needed for insensible and surgical losses Carias catheter to manage I/O carefully DVT ppx mechanical preop and pharmacologic post op as soon as surgery clears Stress ulcer ppx post op Probiotics as ordered Antibiotics as ordered. Limit respiratory suppressants for pain relief pre and post operatively with Tylenol and Toradol if renal function is stable and surgery agrees. Will coordinate with anesthesia as needed, please call Thank you for the opportunity to share in the evaluation of this complex patient. Suggest ICU care post op
--- NOTE | 2020-10-05 13:42 | PDOC.HOSPP ---
- Subjective Encounter Date: 10/05/20 Encounter Time: 09:30 Subjective: Patient seen and examined for abdominal pain with possible acute appendicitis. Patient continues to have abdominal discomfort which is almost the same as last night. Denies any nausea or vomiting. Last bowel movement was 3 days ago. No fever or chills reported. - Objective Vital Signs & Weight: Vital Signs (12 hours) Temp Pulse Resp BP Pulse Ox 10/05/20 12:00 18 10/05/20 10:48 98.4 F 92 18 146/78 H 100 10/05/20 10:42 100 10/05/20 10:34 64 18 100 10/05/20 08:09 97.9 F 87 16 112/61 98 10/05/20 08:00 97.9 F 87 16 112/61 98 10/05/20 03:55 98.6 F 80 18 105/62 96 10/05/20 02:56 95 Weight Admit Weight 319 lb Weight 319 lb 4.8 oz I&O: 10/04/20 10/05/20 10/06/20 06:59 06:59 06:59 Intake Total 700 Output Total 250 Balance 450 Result Diagrams: 10/05/20 04:49 10/05/20 04:49 Additional Labs: Accuchecks 10/05/20 10:49 POC Glucose 127 H Abnormal Lab Results - Last 48 hrs 10/05/20 04:49: Sodium 132 L 10/05/20 04:49: WBC 11.6 H, MPV 7.2 L, Lymphocytes % 15.4 L, Neutrophils # 8.7 H, Monocytes # 1.1 H Radiology Reviewed by me: Yes (CT abdomenacute appendicitis) Hospitalist ROS - Review of Systems Respiratory: denies: cough, dry, shortness of breath, hemoptysis, SOB with excertion, pleuritic pain, sputum, wheezing, other Cardiovascular: denies: chest pain, palpitations, orthopnea, paroxysmal noc. dyspnea, edema, light headedness, other - Medication Medications: Active Medications Generic Name Dose Route Start Last Admin Trade Name Freq PRN Reason Stop Dose Admin Hydrocodone Bitart/Acetaminophen 1 tab 10/04/20 23:53 10/05/20 06:14 Hydrocodone/Acetaminophen 5/325 Mg Tablet PO 1 tab Q4H PRN Administration Moderate Pain (4-6) Albuterol/Ipratropium 3 ml 02/13/21 10:30 10/05/20 10:42 Ipratropium/Albuterol Sulfate 3 Ml Neb NEB Not Given [id number] [facility] Aspirin 81 mg 10/05/20 09:00 10/05/20 07:58 Aspirin Chewable 81 Mg Tab PO 81 mg DAILY [facility] Administration Budesonide 0.5 mg 10/05/20 10:30 10/05/20 10:35 Budesonide 0.5 Mg/2 Ml Neb NEB 10/05/20 14:00 0.5 mg NOW [facility] Administration Famotidine 20 mg 10/05/20 09:00 10/05/20 07:58 Famotidine 20 Mg Tab PO 20 mg BID [facility] Administration Sodium Chloride 1,000 mls @ 100 mls/hr 10/05/20 00:30 10/05/20 01:12 Normal Saline 0.9% IV 1,000 mls .Q10H [facility] Administration Piperacillin Sod/Tazobactam 100 mls @ 200 mls/hr 10/05/20 02:00 10/05/20 07:59 Sod 3.375 gm/ Sodium Chloride IVPB 100 mls 0200,0800,1400,2000 [facility] Administration Methylprednisolone Sodium Succinate 80 mg 10/05/20 10:30 10/05/20 11:17 Methylprednisolone Sod Succ/Pf 125 Mg/2 Ml Vial IVP 10/05/20 14:00 80 mg NOW [facility] Administration Polyethylene Glycol 17 gm 10/05/20 09:00 10/05/20 08:05 Polyethylene Glycol 3350 17 Gm Packet PO Not Given DAILY [facility] Hospitalist Exam Vitals: Vital Signs (12 hours) Temp Pulse Resp BP Pulse Ox 10/05/20 12:00 18 10/05/20 10:48 98.4 F 92 18 146/78 H 100 10/05/20 10:42 100 10/05/20 10:34 64 18 100 10/05/20 08:09 97.9 F 87 16 112/61 98 10/05/20 08:00 97.9 F 87 16 112/61 98 10/05/20 03:55 98.6 F 80 18 105/62 96 10/05/20 02:56 95 Weight Admit Weight 319 lb Weight 319 lb 4.8 oz General Appearance: awake alert Neck: supple, no JVD Heart: RRR, no gallops Respiratory: no wheezes, no rales Gastrointestinal: soft, no guarding, no rigidity, tender to palpation (Mainly in the right lower quadrant) Extremities: no cyanosis, no clubbing Neurological: no new deficit Musculoskeletal: generalized weakness Psychiatric: A&O x 3 Hosp A/P (1) Acute appendicitis Code(s): K35.80 - UNSPECIFIED ACUTE APPENDICITIS Status: Acute (2) DM type 2 (diabetes mellitus, type 2) Status: Chronic Qualifiers: Diabetes mellitus terminologist insulin use: with group home use (3) COPD (chronic obstructive pulmonary disease) Status: Chronic Qualifiers: COPD type: chronic bronchitis (4) Chronic respiratory failure Code(s): J96.10 - CHRONIC RESPIRATORY FAILURE, UNSP W HYPOXIA OR HYPERCAPNIA Status: Chronic Qualifiers: Respiratory failure complication: hypoxia and hypercapnia Qualified Code(s): J96.11 - Chronic respiratory failure with hypoxia; J96.12 - Chronic respiratory failure with hypercapnia (5) Morbid obesity with BMI of 45.0-49.9, adult Code(s): E66.01 - MORBID (SEVERE) OBESITY DUE TO EXCESS CALORIES; Z68.42 - BODY MASS INDEX [BMI] 45.0-49.9, ADULT Status: Chronic - Plan DVT proph w/lovenox, DVT proph w/SCDs 60-year-old white male with morbid obesity, COPD and diabetes mellitus type 2 presents with abdominal discomfort on 10/04. CT scan of the abdomen was consistent with acute appendicitis. He also was found to have WBC count of 14.5 with left shift. Sepsis due to acute appendicitisPOA Patient was found to have significant leukocytosis with CT findings consistent with acute appendicitis. Plan: Await surgical input, continue n.p.o. status. Continue gentle hydration. Continue IV Flagyl with Zosyn COPD/chronic respiratory failure on 3.5 L O2 nasal cannula/obstructive sleep apnea Patient is currently on 3.5 L O2 nasal cannula and is not in respiratory distress. Plan: Continue O2 supplementation. Continue NIPPV nightly. Continue to monitor closely Morbid obesity with a BMI 47.2 Lifestyle modification was emphasized Diabetes mellitus type 2 Plan: We will hold 70/30 insulin. Start sliding scale. Adjust insulin based on blood sugar Chronic pain syndrome Plan: Continue gabapentin with Lyrica at home dose Electrolyte abnormalityhypomagnesemia Plan: We will replace magnesium Other issues per previous notes
[2020-10-05] MEDS ORDERED: Piperacillin/Tazobactam 3.375 GM VIAL ONE (13:54)
[2020-10-05] MEDS ORDERED: Lidocaine 1% PF 5 ML VIAL ONE (13:56)
[2020-10-05] MEDS ORDERED: Dexamethasone 20 MG/5 ML VIAL ONE (13:56)
[2020-10-05] MEDS ORDERED: PROPOFOL 200 MG/20 ML VIAL ONE (13:56)
[2020-10-05] MEDS ORDERED: Ketorolac Tromethamine 30 MG/ML VIAL ONE (13:56)
[2020-10-05] MEDS ORDERED: Ondansetron PF 4 MG/2 ML Vial ONE (13:56)
[2020-10-05] MEDS ORDERED: Rocuronium Bromide 10 MG/ML (10ML VIAL) ONE (13:56)
[2020-10-05 14:20] LABS: Actual Bicarbonate (HCO3a) 24.8 mEq/L (22-28); Analyzer IN Cardio ER; Base Excess (BEa) -1.1 mEq/L (-2.0 to +3.0); CO2 Tension 45.3 mmHg (35.0-45.0); Calcium, Ionized (arterial) 1.16 mmol/L (1.12-1.30); Carboxyhemoglobin (COHb) 1.4 gm% (0.0-3.0); Hemoglobin (Hb) 16.1 g/dL (14.0-18.0); Potassium - ABG Lab 4.32 mmol/L (3.70-5.30); Puncture Site RRA; pH, Arterial 7.36 (7.35-7.45)
[2020-10-05 14:26] LABS: ALV-art Gradient 124.055 mmHg (0-20)
[2020-10-05] MEDS ORDERED: XYLOCAINE 2%-EPI 1:100,000 20 ML VIAL ONE (15:43)
[2020-10-05] MEDS ORDERED: Bupivacaine 0.25% HCL 30 ML VIAL ONE (15:43)
[2020-10-05] MEDS ORDERED: Fentanyl 100 MCG/2 ML VIAL ONE ×3 (15:47→18:39)
[2020-10-05] MEDS ORDERED: SUGAMMADEX SODIUM 500 MG/5 ML VIAL ONE (15:47)
[2020-10-05] MEDS ORDERED: Dextrose 5% in Water 1,000 ML IV PRN (17:29)
[2020-10-05] MEDS ORDERED: Promethazine HCl 25 MG/ML VIAL IM PRN ×2 (17:29→17:46)
[2020-10-05] MEDS ORDERED: Ondansetron PF 4 MG/2 ML Vial IVP PRN (17:29)
[2020-10-05] MEDS ORDERED: Dextrose 50% Abboject 50 ML SYRINGE SLOW IVP PRN (17:29)
[2020-10-05] MEDS ORDERED: HYDROcodone/Acetaminophen 10/325 mg Tablet PO PRN (17:29)
[2020-10-05] MEDS ORDERED: Ondansetron HCl/PF 4 MG/2 ML Vial IVP PRN (17:46)
[2020-10-05] MEDS ORDERED: Promethazine HCl 25 MG/ML VIAL SLOW IVP PRN (17:46)
[2020-10-05] MEDS: Budesonide 0.5 MG/2 ML NEB NEB SCH (18:19)
[2020-10-05] MEDS: Ketorolac Tromethamine 30 MG/ML VIAL IVP SCH (19:32)
[2020-10-05] MEDS: Pregabalin 75 MG CAP PO SCH (19:55)
[2020-10-05] MEDS: Famotidine 20 MG TAB PO SCH (19:56)
[2020-10-05] MEDS: Famotidine/PF 20 mg/2ml Vial SLOW IVP SCH (19:56)
[2020-10-05] MEDS ORDERED: Enoxaparin Sodium 40 MG/0.4 ML SYRINGE SC SCH (21:00)
[2020-10-05] MEDS: HumaLOG 300 UNITS/3 ML VIAL SC PRN (21:07)
[2020-10-05] MEDS: HYDROcodone/Acetaminophen 10/325 mg Tablet PO PRN (21:07)
[2020-10-05] MEDS: Non-Formulary Item 1 EACH (Gabapentin [Gabapentin] 800 MG Tablet) PO SCH (22:32)
[2020-10-06] MEDS: Ketorolac Tromethamine 30 MG/ML VIAL IVP SCH ×4 (00:50→18:37)
[2020-10-06] MEDS: Piperacillin/Tazobactam 3.375 GM in Sodium Chloride 0.9% 100 ML IVPB SCH ×4 (00:51→20:06)
[2020-10-06 04:30] LABS: #Lymphocytes 0.8 thou/uL (1.20-3.40); #Monocytes 0.6 thou/uL (0.11-0.59); #Neutrophils 11.3 thou/uL (1.40-6.50); %Basophils 0.1 % (0.0-1.0); %Eosinophils 0.1 % (0.0-10.0); %Lymphocytes 6.1 % (21.0-51.0); %Monocytes 4.9 % (0.0-10.0); %Neutrophils 88.9 % (42.0-75.0); Hemoglobin 14.1 g/dL (14.0-18.0); Mean Corpuscular HGB CONC 32.8 g/dL (32.0-36.0); Mean Corpuscular Volume 91.6 fL (78.0-98.0); Platelet Count 165 thou/uL (130-400); RBC Distribution Width 12.8 % (11.5-14.5); Red Blood Cell (RBC) Count 4.69 mill/uL (4.70-6.10); White Blood Cell (WBC) Count 12.7 thou/uL (4.8-10.8)
[2020-10-06 05:10] LABS: Lactic Acid 1.5 mmol/L (0.5-2.2)
[2020-10-06 05:16] LABS: ALT (SGPT) 8 U/L (8-55); AST (SGOT) 11 U/L (5-34); Albumin 2.9 g/dL (3.4-4.8); Alkaline Phosphatase 67 U/L (40-110); Anion Gap 11 mmol/L (10-20); BUN (Urea Nitrogen) 18 mg/dL (8.4-25.7); Bilirubin, Total 0.4 mg/dL (0.2-1.2); Calc. Creatinine Clearance 158 mL/min (70-130); Calcium 7.7 mg/dL (7.8-10.44); Carbon Dioxide 25 mmol/L (23-31); Chloride 101 mmol/L (98-107); Globulin 2.9 g/dL (2.4-3.5); Glucose 265 mg/dL (80-115); Phosphorus 2.4 mg/dL (2.3-4.7); Potassium 4.5 mmol/L (3.5-5.1); Protein, Total 5.8 g/dL (5.8-8.1); Sodium 132 mmol/L (136-145)
[2020-10-06] MEDS: HumaLOG 300 UNITS/3 ML VIAL SC PRN ×3 (05:59→18:40)
[2020-10-06] MEDS: Budesonide 0.5 MG/2 ML NEB NEB SCH ×2 (07:12→18:13)
[2020-10-06] MEDS: Famotidine/PF 20 mg/2ml Vial SLOW IVP SCH (08:22)
[2020-10-06] MEDS: Enoxaparin Sodium 40 MG/0.4 ML SYRINGE SC SCH (08:30)
[2020-10-06] MEDS: Aspirin Chewable 81 MG TAB PO SCH (08:30)
[2020-10-06] MEDS: Saccharomyces boulardii 250 MG CAP PO SCH (08:30)
[2020-10-06] MEDS: Famotidine 20 MG TAB PO SCH ×2 (08:30→20:08)
[2020-10-06] MEDS: Polyethylene Glycol 3350 17 GM Packet PO SCH (08:31)
[2020-10-06] MEDS: Gabapentin 400 MG CAP PO SCH ×4 (08:36→20:08)
[2020-10-06] MEDS: Sodium Chloride 0.9% 1,000 ML IV SCH ×2 (08:56→14:20)
--- NOTE | 2020-10-06 10:55 | PRG ---
DATE OF SERVICE: 10/06/2020 SUBJECTIVE: The patient reports he is feeling better. He is hungry. He is not having any dyspnea. He wants his diet advanced. No nausea or vomiting. PHYSICAL EXAMINATION: VITAL SIGNS: Temperature is 98.6, pulse 78, blood pressure 147/71. GENERAL: He is awake, alert. ABDOMEN: Obese, distended. Incisions look good. No evidence of infection. LABORATORY DATA: His white count is 12.7, H and H 14 and 43, platelet count 165. Electrolytes are okay. His glucose is 265. ASSESSMENT: Status post gangrenous appendicitis with local perforation. PLAN: Continue drainage, IV antibiotics, may discharge tomorrow. Job ID: [id number]
--- NOTE | 2020-10-06 11:59 | PDOC.HOSPP ---
- Subjective Encounter Date: 10/06/20 Encounter Time: 09:00 Subjective: Patient seen and examined for sepsis due to acute appendicitis. Underwent appendectomy yesterday. Abdominal pain improving. Denies any nausea or vomiting. Tolerating clear liquid diet. - Objective Vital Signs & Weight: Vital Signs (12 hours) Temp Pulse Resp BP Pulse Ox 10/06/20 11:45 97.9 F 73 16 145/91 H 99 10/06/20 11:02 77 18 99 10/06/20 07:51 98.6 F 78 16 147/71 H 96 10/06/20 07:35 95 10/06/20 07:12 67 20 99 10/06/20 04:05 97.7 F 64 16 144/80 H 97 10/06/20 03:20 97.7 F 75 18 158/82 H 94 L 10/06/20 00:57 97.8 F 78 20 112/70 96 Weight Admit Weight 319 lb Weight 319 lb 4.8 oz I&O: 10/05/20 10/06/20 10/07/20 06:59 06:59 06:59 Intake Total 700 1300 Output Total 250 990 Balance 450 310 Result Diagrams: 10/06/20 04:21 10/06/20 04:21 Additional Labs: Accuchecks 10/05/20 20:43 POC Glucose 241 H Abnormal Lab Results - Last 48 hrs 10/05/20 04:49: Sodium 132 L 10/05/20 04:49: WBC 11.6 H, MPV 7.2 L, Lymphocytes % 15.4 L, Neutrophils # 8.7 H, Monocytes # 1.1 H 10/05/20 14:15: ABG pCO2 45.3 H, ABG O2 Content 21.2 H, ABG Oxyhemoglobin 93.8 L, ABG Deoxyhemoglobin 4.3 H, A-a O2 Gradient 124.055 H, Sodium 132 L 10/06/20 04:21: WBC 12.7 H, RBC 4.69 L, MPV 7.0 L, Neutrophils % 88.9 H, Lymphocytes % 6.1 L, Neutrophils # 11.3 H, Lymphocytes # 0.8 L, Monocytes # 0.6 H 10/06/20 04:21: Sodium 132 L, Calcium 7.7 L, Albumin 2.9 L, Albumin/Globulin Ra jermaine 1.0 L Microbiology - Entire Visit 10/04/20 20:38 Venous blood - Left Hand Blood Culture - Preliminary Specimen has been received and culture in progress. No Growth to date. 10/04/20 20:38 Venous blood - Left Arm Blood Culture - Preliminary Specimen has been received and culture in progress. No Growth to date. 10/05/20 17:19 Peritoneum - Swab Bacterial Culture - Preliminary 10/05/20 17:19 Peritoneum - Swab Anaerobic Culture - Pending Radiology Reviewed by me: Yes (CT abd - reviewed) Hospitalist ROS - Review of Systems Respiratory: denies: cough, dry, shortness of breath, hemoptysis, SOB with excertion, pleuritic pain, sputum, wheezing, other Cardiovascular: denies: chest pain, palpitations, orthopnea, paroxysmal noc. dyspnea, edema, light headedness, other - Medication Medications: Active Medications Generic Name Dose Route Start Last Admin Trade Name Freq PRN Reason Stop Dose Admin Hydrocodone Bitart/Acetaminophen 1 tab 10/04/20 23:53 10/05/20 06:14 Hydrocodone/Acetaminophen 5/325 Mg Tablet PO 1 tab Q4H PRN Administration Moderate Pain (4-6) Hydrocodone Bitart/Acetaminophen 2 tab 10/05/20 17:29 10/05/20 21:07 Hydrocodone/Acetaminophen 10/325 Mg Tablet PO 2 tab Q4H PRN Administration Moderate to Severe Pain (6-10) Albuterol/Ipratropium 3 ml 10/05/20 10:30 10/06/20 11:02 Ipratropium/Albuterol Sulfate 3 Ml Neb NEB 3 ml [id number] LIZBETH Administration Aspirin 81 mg 10/05/20 09:00 10/06/20 08:30 Aspirin Chewable 81 Mg Tab PO 81 mg DAILY LIZBETH Administration Budesonide 0.5 mg 10/05/20 18:30 10/06/20 07:12 Budesonide 0.5 Mg/2 Ml Neb NEB 0.5 mg BID-RT LIZBETH Administration Enoxaparin Sodium 40 mg 10/06/20 09:00 10/06/20 08:30 Enoxaparin Sodium 40 Mg/0.4 Ml Syringe SC 40 mg 0900 LIZBETH Administration Famotidine 20 mg 10/05/20 21:00 10/06/20 08:22 Famotidine/Pf 20 Mg/2ml Vial SLOW IVP Not Given Q12HR LIZBETH Famotidine 20 mg 10/05/20 21:00 10/06/20 08:30 Famotidine 20 Mg Tab PO 20 mg Q12HR LIZBETH Administration Gabapentin 1,200 mg 10/06/20 09:00 10/06/20 08:36 Gabapentin 400 Mg Cap PO 10/07/20 21:01 1,200 mg QID LIZBETH Administration Sodium Chloride 1,000 mls @ 100 mls/hr 10/05/20 00:30 10/06/20 08:56 Normal Saline 0.9% IV Not Given .Q10H LIZBETH Piperacillin Sod/Tazobactam 100 mls @ 200 mls/hr 10/05/20 02:00 10/06/20 08:29 Sod 3.375 gm/ Sodium Chloride IVPB 100 mls 0200,0800,1400,2000 LIZBETH Administration Insulin Human Lispro 0 units 10/04/20 23:20 10/06/20 05:59 Humalog 300 Units/3 Ml Vial SC 6 unit .MODERATE SLIDING SC PRN Administration Moderate Correctional Scale Insulin Human Lispro 0 units 10/04/20 23:20 10/05/20 21:07 Humalog 300 Units/3 Ml Vial SC 2 unit .BEDTIME SLIDING SC PRN Administration Bedtime Correctional Scale Ketorolac Tromethamine 30 mg 10/05/20 18:00 10/06/20 11:22 Ketorolac Tromethamine 30 Mg/Ml Vial IVP 10/08/20 18:01 30 mg Q6HR LIZBETH Administration Morphine Sulfate 2 mg 10/04/20 23:53 10/05/20 13:47 Morphine 2 Mg/Ml Vial SLOW IVP 2 mg Q4H PRN Administration Moderate to Severe Pain (4-10) Polyethylene Glycol 17 gm 10/05/20 09:00 10/06/20 08:31 Polyethylene Glycol 3350 17 Gm Packet PO 17 gm DAILY LIZBETH Administration Pregabalin 300 mg 10/05/20 21:00 10/05/20 19:55 Pregabalin 75 Mg Cap PO 300 mg HS LIZBETH Administration Saccharomyces Boulardii 250 mg 10/06/20 09:00 10/06/20 08:30 Saccharomyces Boulardii 250 Mg Cap PO 250 mg DAILY LIZBETH Administration Hospitalist Exam Vitals: Vital Signs (12 hours) Temp Pulse Resp BP Pulse Ox 10/06/20 11:45 97.9 F 73 16 145/91 H 99 10/06/20 11:02 77 18 99 10/06/20 07:51 98.6 F 78 16 147/71 H 96 10/06/20 07:35 95 10/06/20 07:12 67 20 99 10/06/20 04:05 97.7 F 64 16 144/80 H 97 10/06/20 03:20 97.7 F 75 18 158/82 H 94 L 10/06/20 00:57 97.8 F 78 20 112/70 96 Weight Admit Weight 319 lb Weight 319 lb 4.8 oz General Appearance: awake alert Heart: RRR, no gallops Respiratory: no wheezes, no ronchi Gastrointestinal: soft, non-distended Gastrointestinal - other findings: minimal RLQ tenderness Extremities: no cyanosis Neurological: no new deficit Psychiatric: A&O x 3 Hosp A/P (1) Acute appendicitis Code(s): K35.80 - UNSPECIFIED ACUTE APPENDICITIS Status: Acute (2) DM type 2 (diabetes mellitus, type 2) Status: Chronic Qualifiers: Diabetes mellitus campaign director insulin use: with snf use (3) COPD (chronic obstructive pulmonary disease) Status: Chronic Qualifiers: COPD type: chronic bronchitis (4) Chronic respiratory failure Code(s): J96.10 - CHRONIC RESPIRATORY FAILURE, UNSP W HYPOXIA OR HYPERCAPNIA Status: Chronic Qualifiers: Respiratory failure complication: hypoxia and hypercapnia Qualified Code(s): J96.11 - Chronic respiratory failure with hypoxia; J96.12 - Chronic respiratory failure with hypercapnia (5) Morbid obesity with BMI of 45.0-49.9, adult Code(s): E66.01 - MORBID (SEVERE) OBESITY DUE TO EXCESS CALORIES; Z68.42 - BODY MASS INDEX [BMI] 45.0-49.9, ADULT Status: Chronic - Plan 60-year-old white male with morbid obesity, COPD and diabetes mellitus type 2 presents with abdominal discomfort on 10/04. CT scan of the abdomen was consistent with acute appendicitis. He also was found to have WBC count of 14.5 with left shift. Sepsis due to gangrenous acute appendicitis with local perforation Patient was found to have significant leukocytosis with CT findings consistent with acute appendicitis. Patient underwent appendectomy on 10/05. Plan: Surgical input appreciated. Continue clear liquid diet. Continue IV Zosyn. Reduce IV fluid to 50 mL/h. Will DC IV fluids when tolerating p.o. well COPD/chronic respiratory failure on 3.5 L O2 nasal cannula/obstructive sleep apnea Patient is currently on 3.5 L O2 nasal cannula and is not in respiratory distress. Plan: Continue O2 supplementation. Continue NIPPV nightly. Continue to monitor closely. Pulmonary input appreciated Morbid obesity with a BMI 47.2 Lifestyle modification was emphasized Diabetes mellitus type 2 Plan: Continue sliding scale. Add NPH 10 units twice daily Chronic pain syndrome Plan: Continue gabapentin with Lyrica at home dose Electrolyte abnormalityhypomagnesemia Plan: Magnesium replaced Other issues per previous notes DC planningprobably in a.m. if okay with general surgery
[2020-10-06] MEDS ORDERED: NPH, Human Insulin Isophane 300 UNIT/3 ML VIAL SC SCH (12:15)
--- NOTE | 2020-10-06 17:38 | OP ---
DATE OF PROCEDURE: 10/05/2020 PREOPERATIVE DIAGNOSIS: Acute appendicitis. PROCEDURE PERFORMED: Laparoscopic appendectomy. INDICATIONS: The patient is a 60-year-old male with severe COPD, on home oxygen, who presented with a two-day history of right upper quadrant, right lateral abdominal pain. CT scan showed acute appendicitis, retrocecal. FINDINGS: His appendix was very high, almost in the right upper quadrant near the gallbladder. There was local purulence suggestive of rupture locally. DESCRIPTION OF PROCEDURE: After informed consent was obtained, the patient was taken to the operating room, given general endotracheal anesthesia, placed in supine position. Abdomen was prepped and draped in usual fashion. Local anesthesia was infiltrated subcutaneously and deep. Upper midline incision was performed. Subcu divided sharply. The fascia was grasped and 2 stay sutures of 0 Vicryl placed at each side of midline. Midline incised. Digital palpation revealed no local adhesions. A blunt 12 mm trocar inserted. Pneumoperitoneum was created to a pressure of 15 mmHg. A 0-degree laparoscope was inserted under direct vision. Two 5-mm ports were placed, one suprapubic, one right lateral abdomen. The cecum was that way up in the right upper quadrant, so there was an area of inflammation at the base of the cecum, and just with careful dissection, was able to dissect out the appendix. The mesoappendix was divided with the LigaSure. There was some purulent fluid sent for culture. The base of appendix was divided with a linear 45 mm blue load stapler, placed in an endosac and removed from the abdomen in an endosac. Hemostasis was assured. The abdomen was irrigated. Irrigation fluid removed. The drain was placed and brought out through the lower most incision, placed up along where the appendix had been. Hemostasis was assured. Trocars and retractors removed. The fascia was closed with interrupted 0 Vicryl suture. The skin was closed with interrupted 4-0 Rapide. Dermabond applied. The patient tolerated the procedure well, transferred to Recovery in good condition. Sponge and needle count verified correct x2. Job ID: [id number]
[2020-10-06] MEDS: NPH, Human Insulin Isophane 300 UNIT/3 ML VIAL SC SCH (20:07)
[2020-10-06] MEDS: Pregabalin 75 MG CAP PO SCH (20:08)
[2020-10-07] MEDS: Piperacillin/Tazobactam 3.375 GM in Sodium Chloride 0.9% 100 ML IVPB SCH ×4 (00:57→21:06)
[2020-10-07] MEDS: Ketorolac Tromethamine 30 MG/ML VIAL IVP SCH ×4 (00:57→20:17)
[2020-10-07] MEDS: Famotidine/PF 20 mg/2ml Vial SLOW IVP SCH ×2 (01:05→20:33)
[2020-10-07] MEDS: Budesonide 0.5 MG/2 ML NEB NEB SCH ×2 (06:30→19:52)
[2020-10-07] MEDS ORDERED: Saccharomyces boulardii 250 MG CAP ONE (08:40)
[2020-10-07] MEDS ORDERED: Aspirin 81 mg Enteric Coated Tablet ONE (08:40)
[2020-10-07] MEDS ORDERED: Enoxaparin Sodium 40 MG/0.4 ML SYRINGE ONE (08:41)
[2020-10-07] MEDS ORDERED: Polyethylene Glycol 3350 17 GM Packet ONE (08:42)
[2020-10-07] MEDS ORDERED: Gabapentin 400 MG CAP ONE ×2 (08:43→11:32)
[2020-10-07] MEDS ORDERED: Famotidine 20 MG TAB ONE (08:44)
[2020-10-07] MEDS ORDERED: Piperacillin/Tazobactam 3.375 GM VIAL ONE ×3 (08:45→14:06)
[2020-10-07] MEDS ORDERED: Ketorolac Tromethamine 30 MG/ML VIAL ONE (11:28)
[2020-10-07] MEDS: NPH, Human Insulin Isophane 300 UNIT/3 ML VIAL SC SCH ×2 (12:09→21:02)
[2020-10-07] MEDS: Gabapentin 400 MG CAP PO SCH ×4 (12:09→20:57)
--- NOTE | 2020-10-07 12:57 | PRG ---
DATE OF SERVICE: 10/07/2020 SUBJECTIVE: Mr. Smith is actually doing very well postop from appendectomy. He has no acute complaints. OBJECTIVE: VITAL SIGNS: Temperature 98.6, pulse 72, respirations 16, O2 saturation 97%. Blood pressure 125/66. HEENT: Unremarkable. NECK: No adenopathy or JVD. CHEST: Clear. CARDIAC: S1 and S2. Regular. ABDOMEN: Soft. EXTREMITIES: No edema. ASSESSMENT: Chronic obstructive pulmonary disease and obstructive sleep apnea, which are both clinically stable in a postop patient. PLAN: Continue nebs. Increase activity as tolerated. From my standpoint, should be okay to go home at any time once cleared surgically. Please call if additional help needed. Job ID: [id number]
--- NOTE | 2020-10-07 14:21 | PRG ---
DATE OF SERVICE: 10/07/2020 SUBJECTIVE: The patient is doing well. He is tolerating diet. He has had a bowel movement. Passing gas. No nausea or vomiting. OBJECTIVE: VITAL SIGNS: Afebrile. ABDOMEN: Soft, nondistended. The drainage is just thin serosanguineous fluid. The wounds are healing well. There is no evidence of infection. ASSESSMENT: Probably, ready to go home, but due to the roads and weather, his family cannot make it here, so we will keep him at least another day. Job ID: [id number]
--- NOTE | 2020-10-07 15:13 | PDOC.HOSPP ---
- Subjective Encounter Date: 10/07/20 Encounter Time: 10:00 Subjective: Patient seen and examined for sepsis due to appendicitis. Doing well. Sitting on the chair. Denies any nausea or vomiting. Tolerating regular diet. No fever or chills reported. Minimal right lower quadrant pain. - Objective Vital Signs & Weight: Vital Signs (12 hours) Pulse Resp Pulse Ox 10/07/20 14:22 78 16 98 10/07/20 13:00 98 Weight Admit Weight 319 lb Weight 319 lb 4.8 oz I&O: 10/06/20 10/07/20 10/08/20 06:59 06:59 06:59 Intake Total 1300 500 Output Total 990 50 Balance 310 450 Result Diagrams: 10/06/20 04:21 10/06/20 04:21 Additional Labs: Accuchecks 10/07/20 10/07/20 10/06/20 11:17 04:55 20:06 POC Glucose 184 H 190 H 262 H 10/06/20 16:46 POC Glucose 231 H Abnormal Lab Results - Last 48 hrs 10/06/20 04:21: WBC 12.7 H, RBC 4.69 L, MPV 7.0 L, Neutrophils % 88.9 H, Lym phocytes % 6.1 L, Neutrophils # 11.3 H, Lymphocytes # 0.8 L, Monocytes # 0.6 H 10/06/20 04:21: Sodium 132 L, Calcium 7.7 L, Albumin 2.9 L, Albumin/Globulin Ratio 1.0 L Microbiology - Entire Visit 10/05/20 17:19 Peritoneum - Swab Bacterial Culture - Preliminary Presumptive Escherichia coli Presumptive Escherichia coli#2 10/05/20 17:19 Peritoneum - Swab Anaerobic Culture - Pending 10/04/20 20:38 Venous blood - Left Hand Blood Culture - Preliminary Specimen has been received and culture in progress. No Growth to date. 10/04/20 20:38 Venous blood - Left Arm Blood Culture - Preliminary Specimen has been received and culture in progress. No Growth to date. Hospitalist ROS - Review of Systems Respiratory: denies: cough, dry, shortness of breath, hemoptysis, SOB with excertion, pleuritic pain, sputum, wheezing, other Cardiovascular: denies: chest pain, palpitations, orthopnea, paroxysmal noc. dyspnea, edema, light headedness, other - Medication Medications: Active Medications Generic Name Dose Route Start Last Admin Trade Name Freq PRN Reason Stop Dose Admin Hydrocodone Bitart/Acetaminophen 2 tab 10/05/20 17:29 10/05/20 21:07 Hydrocodone/Acetaminophen 10/325 Mg Tablet PO 2 tab Q4H PRN Administration Moderate to Severe Pain (6-10) Albuterol/Ipratropium 3 ml 10/05/20 10:30 10/07/20 14:22 Ipratropium/Albuterol Sulfate 3 Ml Neb NEB 3 ml [id number] LIZBETH Administration Aspirin 81 mg 10/05/20 09:00 10/06/20 08:30 Aspirin Chewable 81 Mg Tab PO 81 mg DAILY LIZBETH Administration Budesonide 0.5 mg 10/05/20 18:30 10/07/20 06:30 Budesonide 0.5 Mg/2 Ml Neb NEB Not Given BID-RT LIZBETH Enoxaparin Sodium 40 mg 10/06/20 09:00 10/06/20 08:30 Enoxaparin Sodium 40 Mg/0.4 Ml Syringe SC 40 mg 0900 LIZBETH Administration Famotidine 20 mg 10/05/20 21:00 10/07/20 01:05 Famotidine/Pf 20 Mg/2ml Vial SLOW IVP Not Given Q12HR LIZBETH Famotidine 20 mg 10/05/20 21:00 10/06/20 20:08 Famotidine 20 Mg Tab PO 20 mg Q12HR LIZBETH Administration Gabapentin 1,200 mg 10/06/20 09:00 10/06/20 20:08 Gabapentin 400 Mg Cap PO 10/07/20 21:01 1,200 mg QID LIZBETH Administration Piperacillin Sod/Tazobactam 100 mls @ 200 mls/hr 10/05/20 02:00 10/07/20 14:39 Sod 3.375 gm/ Sodium Chloride IVPB 100 mls 0200,0800,1400,2000 LIZBETH Administration Sodium Chloride 1,000 mls @ 50 mls/hr 10/06/20 12:02 10/06/20 14:20 Normal Saline 0.9% IV Not Given .Q20H LIZBETH Insulin Human Lispro 0 units 10/04/20 23:20 10/06/20 18:40 Humalog 300 Units/3 Ml Vial SC 2 unit .MODERATE SLIDING SC PRN Administration Moderate Correctional Scale Insulin Human Lispro 0 units 10/04/20 23:20 10/05/20 21:07 Humalog 300 Units/3 Ml Vial SC 2 unit .BEDTIME SLIDING SC PRN Administration Bedtime Correctional Scale Insulin Human NPH 10 unit 10/06/20 21:00 10/06/20 20:07 Nph, Human Insulin Isophane 300 Unit/3 Ml Vial SC 10 unit BID LIZBETH Administration Ketorolac Tromethamine 30 mg 10/05/20 18:00 10/07/20 00:57 Ketorolac Tromethamine 30 Mg/Ml Vial IVP 10/08/20 18:01 30 mg Q6HR LIZBETH Administration Morphine Sulfate 2 mg 10/04/20 23:53 10/05/20 13:47 Morphine 2 Mg/Ml Vial SLOW IVP 2 mg Q4H PRN Administration Moderate to Severe Pain (4-10) Polyethylene Glycol 17 gm 10/05/20 09:00 10/06/20 08:31 Polyethylene Glycol 3350 17 Gm Packet PO 17 gm DAILY LIZBETH Administration Pregabalin 300 mg 10/05/20 21:00 10/06/20 20:08 Pregabalin 75 Mg Cap PO 300 mg HS LIZBETH Administration Saccharomyces Boulardii 250 mg 10/06/20 09:00 10/06/20 08:30 Saccharomyces Boulardii 250 Mg Cap PO 250 mg DAILY LIZBETH Administration Hospitalist Exam Vitals: Vital Signs (12 hours) Pulse Resp Pulse Ox 10/07/20 14:22 78 16 98 10/07/20 13:00 98 Weight Admit Weight 319 lb Weight 319 lb 4.8 oz General Appearance: awake alert Heart: RRR, no gallops Respiratory: no wheezes, no ronchi Gastrointestinal: soft, normal bowel sounds, no guarding, no rigidity Gastrointestinal - other findings: Minimal right lower quadrant tenderness Extremities: no cyanosis, no clubbing Neurological: no new deficit Hosp A/P (1) Sepsis Code(s): A41.9 - SEPSIS, UNSPECIFIED ORGANISM Status: Acute (2) Gangrenous appendicitis Code(s): K35.891 - OTHER ACUTE APPENDICITIS WITHOUT PERFORATION, WITH GANGRENE Status: Acute (3) DM type 2 (diabetes mellitus, type 2) Status: Chronic Qualifiers: Diabetes mellitus correction insulin use: with correction use (4) COPD (chronic obstructive pulmonary disease) Status: Chronic Qualifiers: COPD type: chronic bronchitis (5) Chronic respiratory failure Code(s): J96.10 - CHRONIC RESPIRATORY FAILURE, UNSP W HYPOXIA OR HYPERCAPNIA Status: Chronic Qualifiers: Respiratory failure complication: hypoxia and hypercapnia Qualified Code(s): J96.11 - Chronic respiratory failure with hypoxia; J96.12 - Chronic respiratory failure with hypercapnia (6) Morbid obesity with BMI of 45.0-49.9, adult Code(s): E66.01 - MORBID (SEVERE) OBESITY DUE TO EXCESS CALORIES; Z68.42 - BODY MASS INDEX [BMI] 45.0-49.9, ADULT Status: Chronic - Plan 60-year-old white male with morbid obesity, COPD and diabetes mellitus type 2 presents with abdominal discomfort on 10/04. CT scan of the abdomen was consistent with acute appendicitis. He also was found to have WBC count of 14.5 with left shift. He was admitted with a diagnosis of sepsis due to acute appendicitis. He was kept n.p.o. and was started on IV Zosyn with IV fluids. Patient underwent laparoscopic appendectomy after clearance by pulmonary team. Postoperatively patient did well. He was found to have gangrenous acute appendicitis with localized perforation. Patient also has a history of chronic respiratory failure and was kept on 3.5 L oxygen nasal cannula. He also required NIPPV nightly during this hospitalization. His home dose of insulin was held on admission and was gradually started after surgery. He also has a history of chronic pain syndrome and was kept on his home pain regimen. He had some electrolyte abnormalities which were replaced. Sepsis due to gangrenous acute appendicitis with local perforation Patient was found to have significant leukocytosis with CT findings consistent with acute appendicitis. Patient underwent appendectomy on 10/05. Plan: Continue IV Zosyn. Discontinue IV fluids. Continue pain control. Ambulate. DC home once cleared by general surgery. COPD/chronic respiratory failure on 3.5 L O2 nasal cannula/obstructive sleep apnea Patient is currently on 3.5 L O2 nasal cannula and is not in respiratory distress. Plan: Continue O2 supplementation. Continue NIPPV nightly. Continue to monitor closely. Diabetes mellitus type 2 Plan: We will continue NPH 10 units daily with sliding scale. Chronic pain syndrome Plan: We will continue his home pain regimen We will continue other medications as above. Continue walking program.
[2020-10-07 16:27] LABS: ALT (SGPT) Less than 7 U/L (8-55); AST (SGOT) 17 U/L (5-34); Albumin 2.6 g/dL (3.4-4.8); Alkaline Phosphatase 68 U/L (40-110); Anion Gap 14 mmol/L (10-20); BUN (Urea Nitrogen) 19 mg/dL (8.4-25.7); Bilirubin, Total 0.3 mg/dL (0.2-1.2); Calc. Creatinine Clearance 176 mL/min (70-130); Calcium 7.8 mg/dL (7.8-10.44); Carbon Dioxide 22 mmol/L (23-31); Chloride 103 mmol/L (98-107); Globulin 3.2 g/dL (2.4-3.5); Glucose 175 mg/dL (80-115); Magnesium 2.6 mg/dL (1.6-2.6); Potassium 4.8 mmol/L (3.5-5.1); Protein, Total 5.8 g/dL (5.8-8.1); Sodium 134 mmol/L (136-145)
[2020-10-07 19:20] LABS: Band 16 % (5-11); Eosinophils 1 % (0-10); Hemoglobin 13.8 g/dL (14.0-18.0); Lymphocytes 3 % (21-51); MDiff Complete? YES; Mean Corpuscular Volume 93.8 fL (78.0-98.0); Mean Platelet Volume 7.7 fL (7.4-10.4); Monocytes 9 % (0-10); Neutrophil 67 % (42-75); Platelet Count 156 thou/uL (130-400); Platelet Morphology Comment Appears Adequate; Polychromasia SLIGHT = 2-3 cells (100X) (0-2/hpf); RBC Distribution Width 13.1 % (11.5-14.5); Reactive Lymphocytes 4 % (0-10); Red Blood Cell (RBC) Count 4.61 mill/uL (4.70-6.10); White Blood Cell (WBC) Count 7.6 thou/uL (4.8-10.8)
[2020-10-07] MEDS: Famotidine 20 MG TAB PO SCH ×2 (20:08→20:57)
[2020-10-07] MEDS: Aspirin Chewable 81 MG TAB PO SCH (20:08)
[2020-10-07] MEDS: Enoxaparin Sodium 40 MG/0.4 ML SYRINGE SC SCH (20:08)
[2020-10-07] MEDS: Polyethylene Glycol 3350 17 GM Packet PO SCH (20:10)
[2020-10-07] MEDS: Saccharomyces boulardii 250 MG CAP PO SCH (20:11)
[2020-10-07] MEDS: Sodium Chloride 0.9% 1,000 ML IV SCH (20:32)
[2020-10-07] MEDS: Pregabalin 75 MG CAP PO SCH (20:57)
[2020-10-07] MEDS: HumaLOG 300 UNITS/3 ML VIAL SC PRN (21:02)
[2020-10-08] MEDS: Piperacillin/Tazobactam 3.375 GM in Sodium Chloride 0.9% 100 ML IVPB SCH ×4 (01:04→20:44)
[2020-10-08] MEDS: Ketorolac Tromethamine 30 MG/ML VIAL IVP SCH ×4 (01:05→17:46)
[2020-10-08] MEDS: HYDROcodone/Acetaminophen 10/325 mg Tablet PO PRN ×2 (01:05→20:46)
[2020-10-08 05:08] LABS: #Eosinphils 0.1 thou/uL (0.0-0.7); #Lymphocytes 0.9 thou/uL (1.20-3.40); #Monocytes 0.7 thou/uL (0.11-0.59); #Neutrophils 3.9 thou/uL (1.40-6.50); %Basophils 0.3 % (0.0-1.0); %Eosinophils 1.9 % (0.0-10.0); %Lymphocytes 15.9 % (21.0-51.0); %Monocytes 12.7 % (0.0-10.0); %Neutrophils 69.2 % (42.0-75.0); Mean Corpuscular HGB CONC 33.1 g/dL (32.0-36.0); Mean Corpuscular Hemoglobin 31.1 pg (27.0-31.0); Mean Corpuscular Volume 93.9 fL (78.0-98.0); Mean Platelet Volume 6.9 fL (7.4-10.4); Platelet Count 170 thou/uL (130-400); RBC Distribution Width 12.9 % (11.5-14.5); Red Blood Cell (RBC) Count 4.18 mill/uL (4.70-6.10); White Blood Cell (WBC) Count 5.7 thou/uL (4.8-10.8)
[2020-10-08 05:26] LABS: Anion Gap 10 mmol/L (10-20); BUN (Urea Nitrogen) 14 mg/dL (8.4-25.7); Calc. Creatinine Clearance 201 mL/min (70-130); Calcium 7.5 mg/dL (7.8-10.44); Carbon Dioxide 27 mmol/L (23-31); Chloride 103 mmol/L (98-107); Glucose 182 mg/dL (80-115); Potassium 4.1 mmol/L (3.5-5.1); Sodium 136 mmol/L (136-145)
[2020-10-08] MEDS: HumaLOG 300 UNITS/3 ML VIAL SC PRN ×3 (06:05→17:47)
[2020-10-08] MEDS: Budesonide 0.5 MG/2 ML NEB NEB SCH (07:51)
[2020-10-08] MEDS: Saccharomyces boulardii 250 MG CAP PO SCH (09:11)
[2020-10-08] MEDS: Enoxaparin Sodium 40 MG/0.4 ML SYRINGE SC SCH (09:11)
[2020-10-08] MEDS: Famotidine 20 MG TAB PO SCH ×2 (09:11→20:44)
[2020-10-08] MEDS: Aspirin Chewable 81 MG TAB PO SCH (09:11)
[2020-10-08] MEDS: Gabapentin 300 MG CAP PO SCH ×4 (09:12→20:45)
[2020-10-08] MEDS: NPH, Human Insulin Isophane 300 UNIT/3 ML VIAL SC SCH ×2 (09:13→20:49)
[2020-10-08] MEDS: Polyethylene Glycol 3350 17 GM Packet PO SCH (09:13)
--- NOTE | 2020-10-08 14:30 | PRG ---
DATE OF SERVICE: 10/08/2020 SUBJECTIVE: The patient is doing well. He wants to go home, but he has no one that can come and get him because of the roads. The weather is so bad. PHYSICAL EXAMINATION: GENERAL: He looks fine. VITAL SIGNS: He is afebrile, pulse 83, blood pressure 170/76. Incisions are healing well. His drain was removed. ASSESSMENT: Doing well. PLAN: Discharge when he can get someone to come and get him. Job ID: [id number]
[2020-10-08] MEDS: hydrALAZINE 20 MG/ML VIAL SLOW IVP PRN (14:54)
--- NOTE | 2020-10-08 15:11 | PDOC.HOSPP ---
- Subjective Encounter Date: 10/08/20 Encounter Time: 09:00 Subjective: Patient seen and examined for sepsis. Abdominal pain improving. Had 1 bowel movement earlier today. Denies any nausea or vomiting. - Objective Vital Signs & Weight: Vital Signs (12 hours) Temp Pulse Resp BP BP Pulse Ox 10/08/20 14:54 83 177/92 H 10/08/20 11:15 83 16 97 10/08/20 11:10 98.1 F 86 18 172/76 H 97 10/08/20 09:15 99 10/08/20 07:56 97.7 F 76 16 136/84 98 10/08/20 07:51 79 16 94 L 10/08/20 05:06 97 Weight Admit Weight 319 lb 4.8 oz Weight 319 lb 4.8 oz I&O: 10/07/20 10/08/20 10/09/20 06:59 06:59 06:59 Intake Total 500 680 Output Total 50 570 Balance 450 110 Result Diagrams: 10/08/20 04:30 10/08/20 04:30 Additional Labs: Accuchecks 10/08/20 10/08/20 10/07/20 11:15 09:12 19:42 POC Glucose 183 H 200 H 213 H 10/07/20 14:49 POC Glucose 190 H Abnormal Lab Results - Last 48 hrs 10/07/20 04:54: Sodium 134 L, Carbon Dioxide 22 L, ALT Less than 7 L, Albumin 2.6 L, Albumin/Globulin Ratio 0.8 L 10/07/20 04:54: RBC 4.61 L, Hgb 13.8 L, Band Neuts % (Manual) 16 H, Lymphocytes % (Manual) 3 L 10/08/20 04:30: Calcium 7.5 L 10/08/20 04:30: RBC 4.18 L, Hgb 13.0 L, Hct 39.3 L, MCH 31.1 H, MPV 6.9 L, Lymphocytes % 15.9 L, Monocytes % 12.7 H, Lymphocytes # 0.9 L, Monocytes # 0.7 H Microbiology - Entire Visit 10/05/20 17:19 Peritoneum - Swab Bacterial Culture - Preliminary Escherichia coli 10/05/20 17:19 Peritoneum - Swab Anaerobic Culture - Preliminary 10/04/20 20:38 Venous blood - Left Hand Blood Culture - Preliminary NO GROWTH AT 48 HOURS 10/04/20 20:38 Venous blood - Left Arm Blood Culture - Preliminary NO GROWTH AT 48 HOURS Hospitalist ROS - Review of Systems Respiratory: denies: cough, dry, shortness of breath, hemoptysis, SOB with excertion, pleuritic pain, sputum, wheezing, other Cardiovascular: denies: chest pain, palpitations, orthopnea, paroxysmal noc. dyspnea, edema, light headedness, other - Medication Medications: Active Medications Generic Name Dose Route Start Last Admin Trade Name Freq PRN Reason Stop Dose Admin Hydrocodone Bitart/Acetaminophen 2 tab 10/05/20 17:29 10/08/20 01:05 Hydrocodone/Acetaminophen 10/325 Mg Tablet PO 2 tab Q4H PRN Administration Moderate to Severe Pain (6-10) Aspirin 81 mg 10/05/20 09:00 10/08/20 09:11 Aspirin Chewable 81 Mg Tab PO 81 mg DAILY LIZBETH Administration Enoxaparin Sodium 40 mg 10/06/20 09:00 10/08/20 09:11 Enoxaparin Sodium 40 Mg/0.4 Ml Syringe SC 40 mg 0900 LIZBETH Administration Famotidine 20 mg 10/05/20 21:00 10/08/20 09:11 Famotidine 20 Mg Tab PO 20 mg Q12HR LIZBETH Administration Gabapentin 900 mg 10/08/20 09:00 10/08/20 11:56 Gabapentin 300 Mg Cap PO 900 mg QID LIZBETH Administration Hydralazine HCl 10 mg 10/05/20 17:29 10/08/20 14:54 Hydralazine 20 Mg/Ml Vial SLOW IVP 10 mg Q4H PRN Administration SBP > 170 or DBP > 100 Piperacillin Sod/Tazobactam 100 mls @ 200 mls/hr 10/05/20 02:00 10/08/20 14:49 Sod 3.375 gm/ Sodium Chloride IVPB 100 mls 0200,0800,1400,2000 LIZBETH Administration Insulin Human Lispro 0 units 10/04/20 23:20 10/08/20 11:53 Humalog 300 Units/3 Ml Vial SC 2 unit .MODERATE SLIDING SC PRN Administration Moderate Correctional Scale Insulin Human Lispro 0 units 10/04/20 23:20 10/07/20 21:02 Humalog 300 Units/3 Ml Vial SC 2 unit .BEDTIME SLIDING SC PRN Administration Bedtime Correctional Scale Insulin Human NPH 10 unit 10/06/20 21:00 10/08/20 09:13 Nph, Human Insulin Isophane 300 Unit/3 Ml Vial SC 10 unit BID LIZBETH Administration Ketorolac Tromethamine 30 mg 10/05/20 18:00 10/08/20 11:53 Ketorolac Tromethamine 30 Mg/Ml Vial IVP 10/08/20 18:01 30 mg Q6HR LIZBETH Administration Morphine Sulfate 2 mg 10/04/20 23:53 10/05/20 13:47 Morphine 2 Mg/Ml Vial SLOW IVP 2 mg Q4H PRN Administration Moderate to Severe Pain (4-10) Polyethylene Glycol 17 gm 10/05/20 09:00 10/08/20 09:13 Polyethylene Glycol 3350 17 Gm Packet PO Not Given DAILY LIZBETH Pregabalin 300 mg 10/05/20 21:00 10/07/20 20:57 Pregabalin 75 Mg Cap PO 300 mg HS LIZBETH Administration Saccharomyces Boulardii 250 mg 10/06/20 09:00 10/08/20 09:11 Saccharomyces Boulardii 250 Mg Cap PO 250 mg DAILY LIZBETH Administration Hospitalist Exam Vitals: Vital Signs (12 hours) Temp Pulse Resp BP BP Pulse Ox 10/08/20 14:54 83 177/92 H 10/08/20 11:15 83 16 97 10/08/20 11:10 98.1 F 86 18 172/76 H 97 10/08/20 09:15 99 10/08/20 07:56 97.7 F 76 16 136/84 98 10/08/20 07:51 79 16 94 L 10/08/20 05:06 97 Weight Admit Weight 319 lb 4.8 oz Weight 319 lb 4.8 oz General Appearance: NAD Heart: RRR, no gallops Respiratory: no wheezes, no ronchi Gastrointestinal: soft, non-distended, normal bowel sounds, no guarding, no rigidity Gastrointestinal - other findings: CANDE drain presenttotal 80 mL overnight per RN Extremities: no cyanosis Psychiatric: A&O x 3 Hosp A/P (1) Sepsis Code(s): A41.9 - SEPSIS, UNSPECIFIED ORGANISM Status: Acute (2) Gangrenous appendicitis Code(s): K35.891 - OTHER ACUTE APPENDICITIS WITHOUT PERFORATION, WITH GANGRENE Status: Acute (3) DM type 2 (diabetes mellitus, type 2) Status: Chronic Qualifiers: Diabetes mellitus chcf insulin use: with buttermaker helper use (4) COPD (chronic obstructive pulmonary disease) Status: Chronic Qualifiers: COPD type: chronic bronchitis (5) Chronic respiratory failure Code(s): J96.10 - CHRONIC RESPIRATORY FAILURE, UNSP W HYPOXIA OR HYPERCAPNIA Status: Chronic Qualifiers: Respiratory failure complication: hypoxia and hypercapnia Qualified Code(s): J96.11 - Chronic respiratory failure with hypoxia; J96.12 - Chronic respiratory failure with hypercapnia (6) Morbid obesity with BMI of 45.0-49.9, adult Code(s): E66.01 - MORBID (SEVERE) OBESITY DUE TO EXCESS CALORIES; Z68.42 - BODY MASS INDEX [BMI] 45.0-49.9, ADULT Status: Chronic - Plan 60-year-old white male with morbid obesity, COPD and diabetes mellitus type 2 p resents with abdominal discomfort on 10/04. CT scan of the abdomen was consistent with acute appendicitis. He also was found to have WBC count of 14.5 with left shift. He was admitted with a diagnosis of sepsis due to acute appendicitis. He was kept n.p.o. and was started on IV Zosyn with IV fluids. Patient underwent laparoscopic appendectomy after clearance by pulmonary team. Postoperatively patient did well. He was found to have gangrenous acute appendicitis with localized perforation. Patient also has a history of chronic respiratory failure and was kept on 3.5 L oxygen nasal cannula. He also required NIPPV nightly during this hospitalization. His home dose of insulin was held on admission and was gradually started after surgery. He also has a history of chronic pain syndrome and was kept on his home pain regimen. He had some electrolyte abnormalities which were replaced. Plan: IV fluids discontinued. Will continue IV Zosyn. Will DC home once cleared by general surgery. Continue O2 supplementation. Change nebulization to as needed per patient request. Continue current dose of NPH with sliding scale. Labs reviewed
[2020-10-08] MEDS: cloNIDine 0.1 MG TAB PO PRN (17:49)
[2020-10-08] MEDS: Pregabalin 75 MG CAP PO SCH (20:45)
[2020-10-09] MEDS: Piperacillin/Tazobactam 3.375 GM in Sodium Chloride 0.9% 100 ML IVPB SCH ×4 (01:55→20:05)
[2020-10-09] MEDS: Enoxaparin Sodium 40 MG/0.4 ML SYRINGE SC SCH (07:57)
[2020-10-09] MEDS: NPH, Human Insulin Isophane 300 UNIT/3 ML VIAL SC SCH ×2 (07:57→20:06)
[2020-10-09] MEDS: Aspirin Chewable 81 MG TAB PO SCH (07:58)
[2020-10-09] MEDS: Gabapentin 300 MG CAP PO SCH ×4 (07:58→20:05)
[2020-10-09] MEDS: Polyethylene Glycol 3350 17 GM Packet PO SCH (07:59)
[2020-10-09] MEDS: Saccharomyces boulardii 250 MG CAP PO SCH (07:59)
[2020-10-09] MEDS: Famotidine 20 MG TAB PO SCH ×2 (07:59→20:06)
[2020-10-09] MEDS: HumaLOG 300 UNITS/3 ML VIAL SC PRN (11:17)
[2020-10-09] MEDS: hydrALAZINE 20 MG/ML VIAL SLOW IVP PRN (15:59)
[2020-10-09] MEDS: cloNIDine 0.1 MG TAB PO PRN (16:42)
--- NOTE | 2020-10-09 17:29 | PDOC.HOSPP ---
- Subjective Encounter Date: 10/09/20 Encounter Time: 10:00 Subjective: Patient seen and examined for sepsis. Denies any new complaints. No nausea or vomiting. - Objective Vital Signs & Weight: Vital Signs (12 hours) Temp Pulse Resp BP BP BP Pulse Ox 10/09/20 16:42 186/77 H 10/09/20 15:59 76 193/94 H 10/09/20 15:35 98.5 F 76 20 193/94 H 99 10/09/20 10:35 98.5 F 79 15 166/78 H 97 10/09/20 07:45 98.2 F 95 16 152/76 H 97 Weight Admit Weight 319 lb 4.8 oz Weight 319 lb 4.8 oz I&O: 10/08/20 10/09/20 10/10/20 06:59 06:59 06:59 Intake Total 680 3650 Output Total 570 Balance 110 3650 Result Diagrams: 10/08/20 04:30 10/08/20 04:30 Additional Labs: Accuchecks 10/09/20 10/09/20 10/09/20 15:37 10:37 05:36 POC Glucose 139 H 174 H 127 H 10/08/20 20:50 POC Glucose 153 H Hospitalist ROS - Review of Systems Respiratory: denies: cough, dry, shortness of breath, hemoptysis, SOB with excer tion, pleuritic pain, sputum, wheezing, other Cardiovascular: denies: chest pain, palpitations, orthopnea, paroxysmal noc. dyspnea, edema, light headedness, other - Medication Medications: Active Medications Generic Name Dose Route Start Last Admin Trade Name Freq PRN Reason Stop Dose Admin Hydrocodone Bitart/Acetaminophen 2 tab 10/05/20 17:29 10/08/20 20:46 Hydrocodone/Acetaminophen 10/325 Mg Tablet PO 2 tab Q4H PRN Administration Moderate to Severe Pain (6-10) Aspirin 81 mg 10/05/20 09:00 10/09/20 07:58 Aspirin Chewable 81 Mg Tab PO 81 mg DAILY LIZBETH Administration Clonidine 0.1 mg 10/04/20 23:53 10/09/20 16:42 Clonidine 0.1 Mg Tab PO 0.1 mg BIDPRN PRN Administration SBP > 160, use second Enoxaparin Sodium 40 mg 10/06/20 09:00 10/09/20 07:57 Enoxaparin Sodium 40 Mg/0.4 Ml Syringe SC 40 mg 0900 LIZBETH Administration Famotidine 20 mg 10/05/20 21:00 10/09/20 07:59 Famotidine 20 Mg Tab PO 20 mg Q12HR LIZBETH Administration Gabapentin 900 mg 10/08/20 09:00 10/09/20 16:41 Gabapentin 300 Mg Cap PO 900 mg QID LIZBETH Administration Hydralazine HCl 10 mg 10/05/20 17:29 10/09/20 15:59 Hydralazine 20 Mg/Ml Vial SLOW IVP 10 mg Q4H PRN Administration SBP > 170 or DBP > 100 Piperacillin Sod/Tazobactam 100 mls @ 200 mls/hr 10/05/20 02:00 10/09/20 13:40 Sod 3.375 gm/ Sodium Chloride IVPB 100 mls 0200,0800,1400,2000 LIZBETH Administration Insulin Human Lispro 0 units 10/04/20 23:20 10/09/20 11:17 Humalog 300 Units/3 Ml Vial SC 2 unit .MODERATE SLIDING SC PRN Administration Moderate Correctional Scale Insulin Human Lispro 0 units 10/04/20 23:20 10/07/20 21:02 Humalog 300 Units/3 Ml Vial SC 2 unit .BEDTIME SLIDING SC PRN Administration Bedtime Correctional Scale Insulin Human NPH 10 unit 10/06/20 21:00 10/09/20 07:57 Nph, Human Insulin Isophane 300 Unit/3 Ml Vial SC 10 unit BID LIZBETH Administration Morphine Sulfate 2 mg 10/04/20 23:53 10/05/20 13:47 Morphine 2 Mg/Ml Vial SLOW IVP 2 mg Q4H PRN Administration Moderate to Severe Pain (4-10) Polyethylene Glycol 17 gm 10/05/20 09:00 10/09/20 07:59 Polyethylene Glycol 3350 17 Gm Packet PO Not Given DAILY LIZBETH Pregabalin 300 mg 10/05/20 21:00 10/08/20 20:45 Pregabalin 75 Mg Cap PO 300 mg HS LIZBETH Administration Saccharomyces Boulardii 250 mg 10/06/20 09:00 10/09/20 07:59 Saccharomyces Boulardii 250 Mg Cap PO 250 mg DAILY LIZBETH Administration Hospitalist Exam Vitals: Vital Signs (12 hours) Temp Pulse Resp BP BP BP Pulse Ox 10/09/20 16:42 186/77 H 10/09/20 15:59 76 193/94 H 10/09/20 15:35 98.5 F 76 20 193/94 H 99 10/09/20 10:35 98.5 F 79 15 166/78 H 97 10/09/20 07:45 98.2 F 95 16 152/76 H 97 Weight Admit Weight 319 lb 4.8 oz Weight 319 lb 4.8 oz General Appearance: awake alert Neck: supple, no JVD Heart: RRR, no gallops Respiratory: no wheezes, no ronchi Gastrointestinal: soft, non-tender, normal bowel sounds Extremities: no cyanosis Neurological: no new deficit Psychiatric: A&O x 3 Hosp A/P (1) Sepsis Code(s): A41.9 - SEPSIS, UNSPECIFIED ORGANISM Status: Acute (2) Gangrenous appendicitis Code(s): K35.891 - OTHER ACUTE APPENDICITIS WITHOUT PERFORATION, WITH GANGRENE Status: Acute (3) DM type 2 (diabetes mellitus, type 2) Status: Chronic Qualifiers: Diabetes mellitus exterminator termite insulin use: with senior care use (4) COPD (chronic obstructive pulmonary disease) Status: Chronic Qualifiers: COPD type: chronic bronchitis (5) Chronic respiratory failure Code(s): J96.10 - CHRONIC RESPIRATORY FAILURE, UNSP W HYPOXIA OR HYPERCAPNIA Status: Chronic Qualifiers: Respiratory failure complication: hypoxia and hypercapnia Qualified Code(s): J96.11 - Chronic respiratory failure with hypoxia; J96.12 - Chronic respiratory failure with hypercapnia (6) Morbid obesity with BMI of 45.0-49.9, adult Code(s): E66.01 - MORBID (SEVERE) OBESITY DUE TO EXCESS CALORIES; Z68.42 - BODY MASS INDEX [BMI] 45.0-49.9, ADULT Status: Chronic - Plan DVT proph w/lovenox, DVT proph w/SCDs 60-year-old white male with morbid obesity, COPD and diabetes mellitus type 2 presents with abdominal discomfort on 10/04. CT scan of the abdomen was consistent with acute appendicitis. He also was found to have WBC count of 14.5 with left shift. He was admitted with a diagnosis of sepsis due to acute appendicitis. He was kept n.p.o. and was started on IV Zosyn with IV fluids. Patient underwent laparoscopic appendectomy after clearance by pulmonary team. Postoperatively patient did well. He was found to have gangrenous acute appendicitis with localized perforation. Patient also has a history of chronic respiratory failure and was kept on 3.5 L oxygen nasal cannula. He also required NIPPV nightly during this hospitalization. His home dose of insulin was held on admission and was gradu ally started after surgery. He also has a history of chronic pain syndrome and was kept on his home pain regimen. He had some electrolyte abnormalities which were replaced. Sepsis due to gangrenous appendicitis Continue IV Zosyn. CANDE drain removed. Diabetes mellitus type 2 Continue NPH at current dose with sliding scale Hypertension Patient does not take any medications for hypertension. Continue as needed medications COPD/obstructive sleep apnea Continue home NIPPV with nebulizer treatments Discharge planning Patient is stable for discharge however unable to leave due to weather condition
[2020-10-09] MEDS: HYDROcodone/Acetaminophen 10/325 mg Tablet PO PRN (20:02)
[2020-10-09] MEDS: Pregabalin 75 MG CAP PO SCH (20:04)
[2020-10-10] MEDS: Piperacillin/Tazobactam 3.375 GM in Sodium Chloride 0.9% 100 ML IVPB SCH ×4 (02:32→20:00)
[2020-10-10] MEDS: NPH, Human Insulin Isophane 300 UNIT/3 ML VIAL SC SCH ×2 (07:56→20:04)
[2020-10-10] MEDS: Enoxaparin Sodium 40 MG/0.4 ML SYRINGE SC SCH (07:57)
[2020-10-10] MEDS: Saccharomyces boulardii 250 MG CAP PO SCH (07:57)
[2020-10-10] MEDS: Gabapentin 300 MG CAP PO SCH ×4 (07:57→20:03)
[2020-10-10] MEDS: Famotidine 20 MG TAB PO SCH ×2 (07:58→20:02)
[2020-10-10] MEDS: Polyethylene Glycol 3350 17 GM Packet PO SCH (07:58)
[2020-10-10] MEDS: Aspirin Chewable 81 MG TAB PO SCH (07:58)
--- NOTE | 2020-10-10 10:28 | PRG ---
DATE OF SERVICE: 10/10/2020 SUBJECTIVE: The patient is doing fine and ready for discharge, but due to the weather, his family cannot make it here to take him. Most pharmacies are closed. He is on oxygen at home, so we are just going to have to keep him here until the weather improves, but otherwise he is doing well. Job ID: [id number]
[2020-10-10] MEDS: HumaLOG 300 UNITS/3 ML VIAL SC PRN ×2 (11:33→16:33)
[2020-10-10] MEDS: hydrALAZINE 20 MG/ML VIAL SLOW IVP PRN (12:18)
[2020-10-10] MEDS ORDERED: Amlodipine 5 MG TAB PO SCH (12:30)
[2020-10-10] MEDS: hydrALAZINE 25 MG TAB PO PRN ×2 (16:33→23:48)
--- NOTE | 2020-10-10 18:25 | PDOC.HOSPP ---
- Subjective Encounter Date: 10/10/20 Encounter Time: 10:00 Subjective: Patient seen and examined for sepsis. Denies any new complaints. No nausea, vomiting or diarrhea. - Objective Vital Signs & Weight: Vital Signs (12 hours) Temp Pulse Resp BP BP Pulse Ox 10/10/20 17:30 150/82 H 10/10/20 16:33 74 161/82 H 10/10/20 15:36 97.8 F 74 18 161/82 H 95 10/10/20 13:04 72 154/84 H 10/10/20 12:18 72 175/85 H 10/10/20 11:05 98.0 F 72 18 175/85 H 97 10/10/20 08:17 84 16 99 10/10/20 07:52 97.8 F 84 18 167/78 H 98 Weight Admit Weight 319 lb 4.8 oz Weight 319 lb 4.8 oz I&O: 10/09/20 10/10/20 10/11/20 06:59 06:59 06:59 Intake Total 3650 Balance 3650 Result Diagrams: 10/08/20 04:30 10/08/20 04:30 Additional Labs: Accuchecks 10/10/20 10/10/20 10/10/20 15:39 10:49 05:59 POC Glucose 153 H 186 H 123 H 10/09/20 20:18 POC Glucose 190 H Hospitalist ROS - Review of Systems Respiratory: denies: cough, dry, shortness of breath, hemoptysis, SOB with excertion, pleuritic pain, sputum, wheezing, other Cardiovascular: denies: chest pain, palpitations, orthopnea, paroxysmal noc. dyspnea, edema, light headedness, other - Medication Medications: Active Medications Generic Name Dose Route Start Last Admin Trade Name Freq PRN Reason Stop Dose Admin Hydrocodone Bitart/Acetaminophen 2 tab 10/05/20 17:29 10/09/20 20:02 Hydrocodone/Acetaminophen 10/325 Mg Tablet PO 2 tab Q4H PRN Administration Moderate to Severe Pain (6-10) Aspirin 81 mg 10/05/20 09:00 10/10/20 07:58 Aspirin Chewable 81 Mg Tab PO 81 mg DAILY LIZBETH Administration Clonidine 0.1 mg 10/04/20 23:53 10/09/20 16:42 Clonidine 0.1 Mg Tab PO 0.1 mg BIDPRN PRN Administration SBP > 160, use second Enoxaparin Sodium 40 mg 10/06/20 09:00 10/10/20 07:57 Enoxaparin Sodium 40 Mg/0.4 Ml Syringe SC 40 mg 0900 LIZBETH Administration Famotidine 20 mg 10/05/20 21:00 10/10/20 07:58 Famotidine 20 Mg Tab PO 20 mg Q12HR LIZBETH Administration Gabapentin 900 mg 10/08/20 09:00 10/10/20 16:33 Gabapentin 300 Mg Cap PO 900 mg QID LIZBETH Administration Hydralazine HCl 10 mg 10/05/20 17:29 10/10/20 12:18 Hydralazine 20 Mg/Ml Vial SLOW IVP 10 mg Q4H PRN Administration SBP > 170 or DBP > 100 Hydralazine HCl 25 mg 10/10/20 12:23 10/10/20 16:33 Hydralazine 25 Mg Tab PO 25 mg TIDPRN PRN Administration Sbp Greater Than 150 Piperacillin Sod/Tazobactam 100 mls @ 200 mls/hr 10/05/20 02:00 10/10/20 13:04 Sod 3.375 gm/ Sodium Chloride IVPB 100 mls 0200,0800,1400,2000 LIZBETH Administration Insulin Human Lispro 0 units 10/04/20 23:20 10/10/20 16:33 Humalog 300 Units/3 Ml Vial SC 2 unit .MODERATE SLIDING SC PRN Administration Moderate Correctional Scale Insulin Human Lispro 0 units 10/04/20 23:20 10/07/20 21:02 Humalog 300 Units/3 Ml Vial SC 2 unit .BEDTIME SLIDING SC PRN Administration Bedtime Correctional Scale Insulin Human NPH 10 unit 10/06/20 21:00 10/10/20 07:56 Nph, Human Insulin Isophane 300 Unit/3 Ml Vial SC 10 unit BID LIZBETH Administration Morphine Sulfate 2 mg 10/04/20 23:53 10/05/20 13:47 Morphine 2 Mg/Ml Vial SLOW IVP 2 mg Q4H PRN Administration Moderate to Severe Pain (4-10) Polyethylene Glycol 17 gm 10/05/20 09:00 10/10/20 07:58 Polyethylene Glycol 3350 17 Gm Packet PO Not Given DAILY [facility] Pregabalin 300 mg 10/05/20 21:00 10/09/20 20:04 Pregabalin 75 Mg Cap PO 300 mg HS LIZBETH Administration Saccharomyces Boulardii 250 mg 10/06/20 09:00 10/10/20 07:57 Saccharomyces Boulardii 250 Mg Cap PO 250 mg DAILY LIZBETH Administration Hospitalist Exam Vitals: Vital Signs (12 hours) Temp Pulse Resp BP BP Pulse Ox 10/10/20 17:30 150/82 H 10/10/20 16:33 74 161/82 H 10/10/20 15:36 97.8 F 74 18 161/82 H 95 10/10/20 13:04 72 154/84 H 10/10/20 12:18 72 175/85 H 10/10/20 11:05 98.0 F 72 18 175/85 H 97 10/10/20 08:17 84 16 99 10/10/20 07:52 97.8 F 84 18 167/78 H 98 Weight Admit Weight 319 lb 4.8 oz Weight 319 lb 4.8 oz General Appearance: awake alert Neck: supple, no JVD Heart: RRR, no gallops Respiratory: no wheezes, no ronchi Gastrointestinal: soft, non-distended, normal bowel sounds Extremities: no cyanosis Neurological: no new deficit Hosp A/P (1) Sepsis Code(s): A41.9 - SEPSIS, UNSPECIFIED ORGANISM Status: Acute (2) Gangrenous appendicitis Code(s): K35.891 - OTHER ACUTE APPENDICITIS WITHOUT PERFORATION, WITH GANGRENE Status: Acute (3) DM type 2 (diabetes mellitus, type 2) Status: Chronic Qualifiers: Diabetes mellitus counter waitress/waiter insulin use: with counter waitress/waiter use (4) COPD (chronic obstructive pulmonary disease) Status: Chronic Qualifiers: COPD type: chronic bronchitis (5) Chronic respiratory failure Code(s): J96.10 - CHRONIC RESPIRATORY FAILURE, UNSP W HYPOXIA OR HYPERCAPNIA Status: Chronic Qualifiers: Respiratory failure complication: hypoxia and hypercapnia Qualified Code(s): J96.11 - Chronic respiratory failure with hypoxia; J96.12 - Chronic respiratory failure with hypercapnia (6) Morbid obesity with BMI of 45.0-49.9, adult Code(s): E66.01 - MORBID (SEVERE) OBESITY DUE TO EXCESS CALORIES; Z68.42 - BODY MASS INDEX [BMI] 45.0-49.9, ADULT Status: Chronic - Plan 60-year-old white male with morbid obesity, COPD and diabetes mellitus type 2 presents with abdominal discomfort on 10/04. CT scan of the abdomen was consis tent with acute appendicitis. He also was found to have WBC count of 14.5 with left shift. He was admitted with a diagnosis of sepsis due to acute appendicitis. He was kept n.p.o. and was started on IV Zosyn with IV fluids. Patient underwent laparoscopic appendectomy after clearance by pulmonary team. Postoperatively patient did well. He was found to have gangrenous acute appendicitis with localized perforation. Patient also has a history of chronic respiratory failure and was kept on 3.5 L oxygen nasal cannula. He also required NIPPV nightly during this hospitalization. His home dose of insulin was held on admission and was gradually started after surgery. He also has a history of chronic pain syndrome and was kept on his home pain regimen. He had some electrolyte abnormalities which were replaced. Sepsis due to gangrenous appendicitis Continue IV Zosyn. CANDE drain removed. Patient is tolerating p.o. well Diabetes mellitus type 2 Continue NPH at current dose with sliding scale Hypertension Patient does not take any medications for hypertension. Will add amlodipine. C ontinue as needed medications for systolic blood pressure greater than 160 COPD/obstructive sleep apnea Continue home NIPPV with nebulizer treatments Discharge planning Patient is stable for discharge however unable to leave due to weather condition
[2020-10-10] MEDS: Pregabalin 75 MG CAP PO SCH (20:03)
[2020-10-10] MEDS: HYDROcodone/Acetaminophen 10/325 mg Tablet PO PRN (23:48)
[2020-10-11] MEDS: Piperacillin/Tazobactam 3.375 GM in Sodium Chloride 0.9% 100 ML IVPB SCH ×2 (02:58→08:40)
[2020-10-11 07:53] VITALS: TEMP 97.4
[2020-10-11] MEDS: Aspirin Chewable 81 MG TAB PO SCH (08:41)
[2020-10-11] MEDS: Saccharomyces boulardii 250 MG CAP PO SCH (08:41)
[2020-10-11] MEDS: Famotidine 20 MG TAB PO SCH (08:41)
[2020-10-11] MEDS: Gabapentin 300 MG CAP PO SCH ×2 (08:42→13:24)
[2020-10-11] MEDS: Enoxaparin Sodium 40 MG/0.4 ML SYRINGE SC SCH (08:42)
[2020-10-11] MEDS: NPH, Human Insulin Isophane 300 UNIT/3 ML VIAL SC SCH (08:43)
[2020-10-11] MEDS: Polyethylene Glycol 3350 17 GM Packet PO SCH (08:43)
[2020-10-11] MEDS ORDERED: Amlodipine 5 MG TAB PO SCH (09:00)
[2020-10-11 11:28] VITALS: BP 159/71
[2020-10-11] MEDS: HumaLOG 300 UNITS/3 ML VIAL SC PRN (11:57)
--- NOTE | 2020-10-11 14:50 | PDOC.DS.DS ---
Provider Date of Admission: 10/05/20 08:18 Date of Discharge: 10/11/20 Admitting Provider: Arnoldo Darby MD Consultations: General Surgery Primary Care Physician: SAVANNAH SHIN Course Resuscitation Status: 10/04/20 23:52 Resuscitation Status Routine Resuscitation Status: FULL: Full Resuscitation Lab Results: 10/08/20 04:30 10/08/20 04:30 Microbiology - Entire Visit 10/04/20 20:38 Venous blood - Left Hand Blood Culture - Final NO GROWTH IN 5 DAYS 10/04/20 20:38 Venous blood - Left Arm Blood Culture - Final NO GROWTH IN 5 DAYS 10/05/20 17:19 Peritoneum - Swab Bacterial Culture - Final Escherichia coli 10/05/20 17:19 Peritoneum - Swab Anaerobic Culture - Final Vitals: Vital Signs (12 hours) Temp Pulse Resp BP BP Pulse Ox 10/11/20 11:10 97.4 F L 80 16 159/71 H 99 10/11/20 09:38 155/84 H 10/11/20 08:41 82 170/81 H 10/11/20 08:20 100 10/11/20 07:53 97.4 F L 82 16 170/81 H 100 10/11/20 04:36 97.6 F 71 20 146/70 H 96 Weight Admit Weight 319 lb 4.8 oz Weight 319 lb 4.8 oz Physical Exam: The patient was seen and examined on the day of discharge. Problem (1) Sepsis Code(s): A41.9 - SEPSIS, UNSPECIFIED ORGANISM Status: Acute (2) Gangrenous appendicitis Code(s): K35.891 - OTHER ACUTE APPENDICITIS WITHOUT PERFORATION, WITH GANGRENE Status: Acute (3) DM type 2 (diabetes mellitus, type 2) Status: Chronic Qualifiers: Diabetes mellitus fdc insulin use: with feather baler use (4) COPD (chronic obstructive pulmonary disease) Status: Chronic Qualifiers: COPD type: chronic bronchitis (5) Chronic respiratory failure Code(s): J96.10 - CHRONIC RESPIRATORY FAILURE, UNSP W HYPOXIA OR HYPERCAPNIA Status: Chronic Qualifiers: Respiratory failure complication: hypoxia and hypercapnia Qualified Code(s): J96.11 - Chronic respiratory failure with hypoxia; J96.12 - Chronic respiratory failure with hypercapnia (6) Morbid obesity with BMI of 45.0-49.9, adult Code(s): E66.01 - MORBID (SEVERE) OBESITY DUE TO EXCESS CALORIES; Z68.42 - BODY MASS INDEX [BMI] 45.0-49.9, ADULT Status: Chronic Plan Prescriptions: Ondansetron [Zofran ODT] 4 mg PO Q4HR PRN 3 Days #10 tab PRN Reason: Nausea/Vomiting Ondansetron [Zofran ODT] 4 mg PO Q4HR PRN 3 Days #10 tab PRN Reason: Nausea/Vomiting HYDROcodone Bit/APAP 5/325 [[place] 5/325] 1 - 2 tab PO Q6HR PRN 5 Days #30 tab PRN Reason: Pain HYDROcodone Bit/APAP 5/325 [[place] 5/325] 1 - 2 tab PO Q6HR PRN 5 Days #30 tab PRN Reason: Pain Home Medications: Medication Instructions Recorded Confirmed Type Aspirin 81 mg PO DAILY 08/01/19 10/04/20 History Dapagliflozin Propanediol [Farxiga] 5 mg PO QAM 08/01/19 10/04/20 History Gabapentin 1,600 mg PO QID 08/01/19 10/04/20 History Insulin NPH Hum/Reg Insulin HM 50 unit SC QAM 08/01/19 10/04/20 History [Novolin 70/30] Pregabalin [Lyrica] 300 mg PO QAM 08/01/19 10/04/20 History HYDROcodone Bit/APAP 5/325 [[place] 1 - 2 tab PO Q6HR PRN 5 Days #30 10/10/20 Rx 5/325] tab Ondansetron [Zofran ODT] 4 mg PO Q4HR PRN 3 Days #10 tab 10/10/20 Rx HYDROcodone Bit/APAP 5/325 [[place] 1 - 2 tab PO Q6HR PRN 5 Days #30 10/11/20 Rx 5/325] tab Ondansetron [Zofran ODT] 4 mg PO Q4HR PRN 3 Days #10 tab 10/11/20 Rx Allergies: No Known Allergies Allergy (Verified 08/01/19 22:15) Discharge Instructions:: Activity as tolerated. Walk frequently. Take medications as prescribed by physician. You may shower, but no bathing or submerging incisions in water. Pat incisions dry. Do not pick at or peel incision glue. It will come off on it's own. If bleeding or drainage is noted, call your physician. Referrals: SAVANNAH SHIN [Primary Care Provider] - Jorge West Jr, MD [Active] - 7 Days Disposition: HOME Quality CORE MEASURES:: N/A
--- NOTE | 2020-10-12 14:41 | EKG ---
Test Reason : Blood Pressure : / mmHG Vent. Rate : 099 BPM Atrial Rate : 099 BPM P-R Int : 166 ms QRS Dur : 076 ms QT Int : 322 ms P-R-T Axes : 044 055 043 degrees QTc Int : 413 ms Normal sinus rhythm Normal ECG Confirmed by VICKIE RAI, SINGH Parrish ([id number]), film editor supervisor MERE REHMAN ([id number]) on 10/12/2020 2:41:21 PM Referred By: Confirmed By:SINGH JOHNSTON MD
[2020-10-16 09:17] LABS: Fungus Stain Final report (.)
== END 2020-10-11 14:43 | disposition home or self-care (01) | DRG 853 ==
LOC: ERS 19:43 → SJJU 21:35 → OBSVTOIN 10-05 08:18
PROVIDERS: ADMIT Internal Medicine; ATTEND Internal Medicine
PROC: 0DTJ4ZZ Resection of Appendix, Percutaneous Endoscopic Approach (ICD-10-PCS; principal; 2020-10-05)
DX: A41.9 Sepsis, unspecified organism (principal); K35.33 Acute appendicitis with perforation, localized peritonitis, and gangrene, with abscess; J96.11 Chronic respiratory failure with hypoxia; E87.1 Hypo-osmolality and hyponatremia; E66.2 Morbid (severe) obesity with alveolar hypoventilation; Z68.42 Body mass index [BMI] 45.0-49.9, adult; J96.12 Chronic respiratory failure with hypercapnia; Z20.822 Contact with and (suspected) exposure to COVID-19; E11.9 Type 2 diabetes mellitus without complications; I50.9 Heart failure, unspecified; J44.9 Chronic obstructive pulmonary disease, unspecified; F17.210 Nicotine dependence, cigarettes, uncomplicated; G89.4 Chronic pain syndrome; E83.42 Hypomagnesemia; Z99.81 Dependence on supplemental oxygen; Z79.82 Long term (current) use of aspirin; Z79.4 Long term (current) use of insulin; Z79.899 Other long term (current) drug therapy
CPT/HCPCS: 36415; 36416; 36600; 71045; 80048; 80053; 82805; 83605; 83735; 83880; 84100; 84484; 85025; 87040; 87070; 87077; 87102; 87186; 87205; 87206; 87635; 88304; 93005; 93306; 94640; 94660; 96365; 96366; 96367; 96375; G0378; J0360; J1100; J1650; J1815; J1885; J2270; J2405; J2543; J2704; J2930; J3010; J3475; J3490; J7620; J7626; S0020; U0003; U0005

== ENCOUNTER 2021-06-02 16:30 | Observation (INO) | payer MEDICARE ==
[2021-06-02] MEDS ORDERED: Aspirin Chewable 81 MG TAB ONE (17:13)
[2021-06-02] MEDS ORDERED: Nitroglycerin 2% Ointment 1 INCH/1 GM Packet ONE (17:13)
[2021-06-02] MEDS ORDERED: Diltiazem 125 MG/25 ML ONE (17:15)
[2021-06-02 17:19] LABS: #Eosinphils 0.1 thou/uL (0.0-0.7); #Monocytes 0.8 thou/uL (0.11-0.59); #Neutrophils 8.3 thou/uL (1.40-6.50); %Basophils 0.2 % (0.0-1.0); %Eosinophils 1.1 % (0.0-10.0); %Lymphocytes 18.2 % (21.0-51.0); %Monocytes 6.7 % (0.0-10.0); %Neutrophils 73.8 % (42.0-75.0); Hemoglobin 17.4 g/dL (14.0-18.0); Mean Corpuscular HGB CONC 33.1 g/dL (32.0-36.0); Mean Corpuscular Hemoglobin 30.3 pg (27.0-31.0); Mean Corpuscular Volume 91.6 fL (78.0-98.0); Mean Platelet Volume 7.2 fL (7.4-10.4); Platelet Count 204 thou/uL (130-400); RBC Distribution Width 13.6 % (11.5-14.5); Red Blood Cell (RBC) Count 5.73 mill/uL (4.70-6.10); White Blood Cell (WBC) Count 11.2 thou/uL (4.8-10.8)
[2021-06-02 17:55] LABS: ALT (SGPT) 12 U/L (8-55); AST (SGOT) 11 U/L (5-34); Albumin 3.8 g/dL (3.4-4.8); Alkaline Phosphatase 121 U/L (40-110); Anion Gap 15 mmol/L (10-20); BUN (Urea Nitrogen) 16 mg/dL (8.4-25.7); Bilirubin, Total 0.4 mg/dL (0.2-1.2); Calc. Creatinine Clearance 0 mL/min (70-130); Calcium 9.2 mg/dL (7.8-10.44); Carbon Dioxide 27 mmol/L (23-31); Chloride 99 mmol/L (98-107); Globulin 3.1 g/dL (2.4-3.5); Glucose 98 mg/dL (80-115); Lipase 7 U/L (8-78); Potassium 3.9 mmol/L (3.5-5.1); Protein, Total 6.9 g/dL (5.8-8.1); Sodium 137 mmol/L (136-145)
[2021-06-02] MEDS ORDERED: cefTRIAXone\\ROCEPHIN 2 GM VIAL ONE (17:55)
[2021-06-02] MEDS ORDERED: Azithromycin 500 MG VIAL ONE (17:55)
[2021-06-02] MEDS ORDERED: Enoxaparin Sodium 100 MG/ML SYRINGE ONE (19:16)
[2021-06-02] MEDS ORDERED: Enoxaparin Sodium 60 MG/0.6 ML SYRINGE ONE (19:16)
[2021-06-02] MEDS ORDERED: HumaLOG 300 UNITS/3 ML VIAL SC PRN (19:45)
[2021-06-02] MEDS ORDERED: Dextrose 50% Abboject 50 ML SYRINGE SLOW IVP PRN (19:45)
[2021-06-02] MEDS ORDERED: Dextrose 5% in Water 1,000 ML IV PRN (19:45)
[2021-06-02 19:51] LABS: SARS-CoV-2 NAA Rapid Test Not Detected (NotDetected)
[2021-06-02 21:00] LABS: Troponin I Less than 0.010 ng/mL (< 0.028)
[2021-06-02] MEDS ORDERED: Nicotine 21 MG PATCH TD SCH (22:00)
[2021-06-02] MEDS ORDERED: Metoprolol Tartrate 5 MG/5 ML VIAL IVP SCH (22:30)
[2021-06-02 23:37] LABS: Troponin I Less than 0.010 ng/mL (< 0.028)
[2021-06-03] MEDS: Gabapentin 400 MG CAP PO SCH ×5 (00:23→20:19)
[2021-06-03] MEDS ORDERED: Pregabalin 75 MG CAP PO SCH ×3 (00:30→21:00)
[2021-06-03] MEDS: guaiFENesin/DM ER PO SCH ×2 (00:39→08:29)
[2021-06-03 00:49] VITALS: BMI 52.3
[2021-06-03] MEDS ORDERED: FLU VACC QS2021-22(6MOS UP)/PF 60 MCG/0.5 ML SYRINGE IM ONE (01:00)
[2021-06-03 05:16] LABS: #Eosinphils 0.2 thou/uL (0.0-0.7); #Lymphocytes 2.4 thou/uL (1.20-3.40); #Monocytes 0.7 thou/uL (0.11-0.59); #Neutrophils 5.2 thou/uL (1.40-6.50); %Basophils 0.5 % (0.0-1.0); %Eosinophils 2.6 % (0.0-10.0); %Lymphocytes 28.3 % (21.0-51.0); %Monocytes 8.3 % (0.0-10.0); %Neutrophils 60.4 % (42.0-75.0); Hemoglobin 15.5 g/dL (14.0-18.0); Mean Corpuscular HGB CONC 31.9 g/dL (32.0-36.0); Mean Corpuscular Hemoglobin 29.1 pg (27.0-31.0); Mean Corpuscular Volume 91.3 fL (78.0-98.0); Mean Platelet Volume 7.1 fL (7.4-10.4); Platelet Count 175 thou/uL (130-400); RBC Distribution Width 13.4 % (11.5-14.5); Red Blood Cell (RBC) Count 5.33 mill/uL (4.70-6.10); White Blood Cell (WBC) Count 8.5 thou/uL (4.8-10.8)
[2021-06-03 05:40] LABS: Anion Gap 11 mmol/L (10-20); BUN (Urea Nitrogen) 13 mg/dL (8.4-25.7); Calc. Creatinine Clearance 212 mL/min (70-130); Calcium 8.3 mg/dL (7.8-10.44); Carbon Dioxide 26 mmol/L (23-31); Chloride 103 mmol/L (98-107); Glucose 123 mg/dL (80-115); Sodium 136 mmol/L (136-145)
[2021-06-03] MEDS ORDERED: Enoxaparin Sodium 80 MG/0.8 ML SYRINGE SC SCH (09:00)
[2021-06-03] MEDS ORDERED: Azithromycin 500 MG in Sodium Chloride 0.9% 250 ML 250 ML IVPB SCH (17:00)
[2021-06-03] MEDS ORDERED: Carvedilol 6.25 MG TAB PO SCH (17:00)
[2021-06-03] MEDS ORDERED: cefTRIAXone\\ROCEPHIN 1 GM in Sodium Chloride 0.9% 100 ML IVPB SCH (18:00)
[2021-06-03] MEDS ORDERED: Doxycycline 100 MG CAP PO SCH ×2 (18:15→21:00)
[2021-06-03] MEDS ORDERED: Cefdinir 300 MG CAP PO SCH ×2 (18:15→21:00)
[2021-06-03 19:30] VITALS: BP 167/90; TEMP 97.7
== END 2021-06-03 20:30 | disposition home or self-care (01) ==
LOC: ERS 16:30 → 2SE 19:24
PROVIDERS: ADMIT Internal Medicine; ATTEND Internal Medicine
DX: I48.91 Unspecified atrial fibrillation (principal); I16.0 Hypertensive urgency; J44.0 Chronic obstructive pulmonary disease with (acute) lower respiratory infection; J18.9 Pneumonia, unspecified organism; F17.210 Nicotine dependence, cigarettes, uncomplicated; I11.0 Hypertensive heart disease with heart failure; I50.9 Heart failure, unspecified; E11.42 Type 2 diabetes mellitus with diabetic polyneuropathy; G47.33 Obstructive sleep apnea (adult) (pediatric); J96.11 Chronic respiratory failure with hypoxia; J96.12 Chronic respiratory failure with hypercapnia; M35.1 Other overlap syndromes; E66.01 Morbid (severe) obesity due to excess calories; Z68.43 Body mass index [BMI] 50.0-59.9, adult; Z20.822 Contact with and (suspected) exposure to COVID-19; Z79.4 Long term (current) use of insulin; Z79.82 Long term (current) use of aspirin; Z79.899 Other long term (current) drug therapy; Z99.81 Dependence on supplemental oxygen
CPT/HCPCS: 71045; 80048; 80053; 82962 ×2; 83605; 83690; 83880; 84484 ×2; 85025 ×2; 85379; 87040; 93005; U0002; 36415; 36416; 96365; 96367; 96372; 96375; G0378; J0456; J0696; J1650; J1815